=== PATIENT | male | born 1980 | race Caucasian/White ===

== ENCOUNTER 2016-12-04 04:05 | Emergency (ER) | payer SELFPAY ==
[~2016-12-04] VITALS: Ht 175.3 cm; Wt 133.8 kg
[2016-12-04] MEDS ORDERED: IBUPROFEN 600 MG TAB PO ONE (05:30)
[2016-12-04 05:34] VITALS: BP 136/74
== END 2016-12-04 05:52 | disposition home or self-care (01) ==
LOC: M ED 04:59
DX: T81.30XA Disruption of wound, unspecified, initial encounter (principal); X58.XXXA Exposure to other specified factors, initial encounter; Y92.89 Other specified places as the place of occurrence of the external cause; Y93.89 Activity, other specified; Y99.8 Other external cause status

== ENCOUNTER 2017-01-08 22:42 | Emergency (ER) | payer SELFPAY ==
[~2017-01-08] VITALS: Ht 172.7 cm; Wt 127.0 kg
[2017-01-08] MEDS ORDERED: AMOX500C PO (23:50)
[2017-01-08 23:58] VITALS: BP 149/87
[2017-01-09] MEDS ORDERED: AMOXICILLIN 500 MG CAP PO ONE
[2017-01-09] MEDS ORDERED: NORCO, ANEXSIA 5/325MG TABLET (HYDROcodone/ACETAMINOPHEN) PO ONE
== END 2017-01-09 00:07 | disposition home or self-care (01) ==
LOC: M ED 23:05
DX: K03.9 Disease of hard tissues of teeth, unspecified (principal); G50.1 Atypical facial pain; I10 Essential (primary) hypertension

== ENCOUNTER 2017-02-06 15:52 | Emergency (ER) | payer OTHER, SELFPAY ==
[~2017-02-06] VITALS: Ht 175.3 cm; Wt 127.3 kg
[~2017-02-06 15:52] MED LIST: AMOX500C PO
[2017-02-06] MEDS ORDERED: IBUPROFEN 800 MG TAB PO ONE (17:15)
[2017-02-06] MEDS ORDERED: IBUP80TA PO (17:16)
[2017-02-06 17:32] VITALS: BP 153/100
--- NOTE | 2017-02-06 17:56 | REP ---
LEFT KNEE SERIES, FIVE VIEWS: FINDINGS: There is no evidence of an acute fracture, dislocation or intrinsic bone disease. IMPRESSION: No fracture or dislocation. Signed by Royer Wynn MD 02/06/2017 08:22 P
== END 2017-02-06 17:48 | disposition home or self-care (01) ==
LOC: M ED 17:26
DX: S80.02XA Contusion of left knee, initial encounter (principal); W01.0XXA Fall on same level from slipping, tripping and stumbling without subsequent striking against object, initial encounter; Y92.511 Restaurant or cafe as the place of occurrence of the external cause; Y93.01 Activity, walking, marching and hiking; Y99.0 Civilian activity done for income or pay; I10 Essential (primary) hypertension; R51 Headache; M54.9 Dorsalgia, unspecified; F32.9 Major depressive disorder, single episode, unspecified; G47.33 Obstructive sleep apnea (adult) (pediatric); Z79.2 Long term (current) use of antibiotics

== ENCOUNTER 2017-03-07 09:15 | Outpatient (RCR) | payer OTHER ==
[~2017-03-07 09:15] MED LIST changes: +IBUP80TA PO
== END 2017-03-20 ==
LOC: M PT 09:15
PROVIDERS: ATTEND Orthopaedic Surgery
DX: Z51.89 Encounter for other specified aftercare (principal); S80.02XA Contusion of left knee, initial encounter; X58.XXXA Exposure to other specified factors, initial encounter; Y92.89 Other specified places as the place of occurrence of the external cause; Y93.89 Activity, other specified; Y99.8 Other external cause status
CPT/HCPCS: 97110; 97161; G0283

== ENCOUNTER 2017-04-06 07:00 | Outpatient (RCR) | payer OTHER | END 2017-04-20 | disposition home or self-care (01) | LOC: M PT 07:00 | PROVIDERS: ATTEND Orthopaedic Surgery | DX: Z51.89 Encounter for other specified aftercare (principal); S80.02XA Contusion of left knee, initial encounter; X58.XXXA Exposure to other specified factors, initial encounter; Y92.89 Other specified places as the place of occurrence of the external cause; Y93.89 Activity, other specified; Y99.8 Other external cause status ==

== ENCOUNTER 2017-08-26 19:03 | Emergency (ER) | payer SELFPAY, OTHER ==
[2017-08-26] MEDS: NORCO, ANEXSIA 5/325MG TABLET (HYDROcodone/ACETAMINOPHEN) PO (20:09)
== END 2017-08-26 20:45 | disposition home or self-care (01) ==
LOC: M ED 19:03
DX: S83.402A Sprain of unspecified collateral ligament of left knee, initial encounter (principal); S93.402A Sprain of unspecified ligament of left ankle, initial encounter; W10.9XXA Fall (on) (from) unspecified stairs and steps, initial encounter; Y92.009 Unspecified place in unspecified non-institutional (private) residence as the place of occurrence of the external cause; Y93.89 Activity, other specified; Y99.8 Other external cause status; I10 Essential (primary) hypertension; F41.9 Anxiety disorder, unspecified
CPT/HCPCS: 73564

== ENCOUNTER 2018-01-15 20:24 | Emergency (ER) | payer SELFPAY ==
[2018-01-16] MEDS: NORCO 5/325MG TABLET (BULK FOR ED) PO (00:45)
[2018-01-16] MEDS: METHOCARBAMOL 750 MG TAB PO (00:45)
[2018-01-16] MEDS: NAPROXEN 250 MG TAB PO (00:45)
== END 2018-01-16 01:01 | disposition home or self-care (01) ==
LOC: M ED 20:24
DX: S39.012A Strain of muscle, fascia and tendon of lower back, initial encounter (principal); X58.XXXA Exposure to other specified factors, initial encounter; Y92.009 Unspecified place in unspecified non-institutional (private) residence as the place of occurrence of the external cause; I10 Essential (primary) hypertension; G47.33 Obstructive sleep apnea (adult) (pediatric); Z87.39 Personal history of other diseases of the musculoskeletal system and connective tissue
CPT/HCPCS: 99282

== ENCOUNTER 2018-03-23 08:34 | Emergency (ER) | payer MEDICAID, SELFPAY ==
[2018-03-23] MEDS: MORPHINE 4 MG/ML 1ML VIAL/SYRINGE (J2270) IV ×2 (10:45)
[2018-03-23 11:36] LABS: BASO % 0.4 % (0.0-1.0); EOS # 0.2 10^3/uL (0.0-0.50); EOS % 2.7 % (0.0-3.0); HEMATOCRIT 39.9 % (42.0-52.0); HEMOGLOBIN 13.9 g/dl (13.5-17.5); IMMATURE GRANULOCYTE % 0.2 % (0-3.0); LYMPH # 1.4 10^3/uL (1.5-4.5); LYMPH % 24.5 % (24.0-44.0); MEAN CORPUSCULAR HEMOGLOBIN 29.6 pg (27.0-33.0); MEAN CORPUSCULAR HGB CONC 34.8 g/dl (32.0-36.5); MEAN CORPUSCULAR VOLUME 85.1 fl (80.0-96.0); MONO # 0.5 10^3/uL (0.0-0.8); MONO % 8.6 % (0.0-5.0); NEUTROPHILS # 3.6 10^3/uL (1.8-7.7); NEUTROPHILS % 63.6 % (36.0-66.0); PLATELET COUNT, AUTOMATED 171 10^3/uL (150-450); RED BLOOD COUNT 4.69 10^6/uL (4.30-6.10); RED CELL DISTRIBUTION WIDTH 14.3 % (11.5-14.5); WHITE BLOOD COUNT 5.6 10^3/uL (4.0-10.0)
[2018-03-23] MEDS: ONDANSETRON 4MG/2ML VIAL (J2405) IV ×2 (11:36)
[2018-03-23 11:55] LABS: ANION GAP 7 MEQ/L (8-16); BLOOD UREA NITROGEN 7 MG/DL (7-18); CALCIUM LEVEL 8.1 MG/DL (8.5-10.1); CARBON DIOXIDE LEVEL 29 MEQ/L (21-32); CHLORIDE LEVEL 105 MEQ/L (98-107); CREATININE FOR GFR 0.96 MG/DL (0.70-1.30); GLOMERULAR FILTRATION RATE > 60.0 (>60); GLUCOSE, FASTING 86 MG/DL (70-100); POTASSIUM SERUM 3.7 MEQ/L (3.5-5.1); SODIUM LEVEL 141 MEQ/L (136-145)
[2018-03-23] MEDS ORDERED: ISOVUE-370 76% 100ML VIAL (Q9967) As Ordered ×2 (11:56)
[2018-03-23] MEDS: PERCOCET 5MG/325MG TAB PO ×2 (12:18)
== END 2018-03-23 13:22 | disposition home or self-care (01) ==
LOC: M ED 08:34
DX: S09.90XA Unspecified injury of head, initial encounter (principal); S20.229A Contusion of unspecified back wall of thorax, initial encounter; W01.0XXA Fall on same level from slipping, tripping and stumbling without subsequent striking against object, initial encounter; Y92.098 Other place in other non-institutional residence as the place of occurrence of the external cause
CPT/HCPCS: J2405

== ENCOUNTER → 2018-05-22 | Outpatient (CLI) | payer OTHER, MEDICAID | LOC: M RAD 07:04 | DX: S80.02XD Contusion of left knee, subsequent encounter (principal); W18.30XD Fall on same level, unspecified, subsequent encounter; Y92.009 Unspecified place in unspecified non-institutional (private) residence as the place of occurrence of the external cause | CPT/HCPCS: 73721 ==

== ENCOUNTER → 2018-09-04 | Outpatient (REF) | payer OTHER ==
[~2018-09-04] MED LIST changes: +NAPR-885 PO; +ROBA500T PO; +TYLE500T78 PO; +ULTR50TA8 PO
[2018-09-04 12:18] LABS: BASO % 0.6 % (0.0-1.0); EOS # 0.2 10^3/uL (0.0-0.50); EOS % 2.2 % (0.0-3.0); HEMATOCRIT 44.9 % (42.0-52.0); HEMOGLOBIN 14.9 g/dl (13.5-17.5); LYMPH # 1.5 10^3/uL (1.5-4.5); LYMPH % 20.2 % (24.0-44.0); MEAN CORPUSCULAR HEMOGLOBIN 29.7 pg (27.0-33.0); MEAN CORPUSCULAR HGB CONC 33.2 g/dl (32.0-36.5); MEAN CORPUSCULAR VOLUME 89.6 fl (80.0-96.0); MONO # 0.7 10^3/uL (0.0-0.8); MONO % 9.1 % (0.0-5.0); NEUTROPHILS # 4.8 10^3/uL (1.8-7.7); NEUTROPHILS % 67.2 % (36.0-66.0); PLATELET COUNT, AUTOMATED 205 10^3/uL (150-450); RED BLOOD COUNT 5.01 10^6/uL (4.30-6.10); WHITE BLOOD COUNT 7.2 10^3/uL (4.0-10.0)
[2018-09-04 12:31] LABS: ALBUMIN 3.6 GM/DL (3.2-5.2); ALT/SGPT 35 U/L (12-78); BILIRUBIN,TOTAL 0.9 MG/DL (0.2-1.0); BLOOD UREA NITROGEN 11 MG/DL (7-18); CALCIUM LEVEL 8.3 MG/DL (8.5-10.1); CARBON DIOXIDE LEVEL 30 MEQ/L (21-32); CHLORIDE LEVEL 103 MEQ/L (98-107); CHOLESTEROL LEVEL 108 MG/DL (<200); CHOLESTEROL RISK RATIO 2.634 (<5); CREATININE FOR GFR 0.92 MG/DL (0.70-1.30); GLOMERULAR FILTRATION RATE > 60.0 (>60); GLUCOSE, FASTING 95 MG/DL (70-100); HDL CHOLESTEROL 41 MG/DL (>40); LDL CHOLESTEROL 53 MG/DL (<100); NON-HDL-C 67 MG/DL; POTASSIUM SERUM 4.2 MEQ/L (3.5-5.1); SODIUM LEVEL 139 MEQ/L (136-145); TOTAL PROTEIN 7.3 GM/DL (6.4-8.2); TRIGLYCERIDES LEVEL 71 MG/DL (<150)
[2018-09-04 14:09] LABS: TOTAL 25(OH) VITAMIN D 15.8 NG/ML (30.0-100.0)
[2018-09-04 15:28] LABS: HEMOGLOBIN A1c 4.5 %
== END ==
LOC: M SFHCPLAZ 10:20
PROVIDERS: ATTEND Nurse Practitioner Family
DX: Z13.228 Encounter for screening for other metabolic disorders (principal); Z13.220 Encounter for screening for lipoid disorders; E55.9 Vitamin D deficiency, unspecified

== ENCOUNTER 2018-11-09 16:03 | Emergency (ER) | payer OTHER ==
[~2018-11-09] VITALS: Ht 175.3 cm; Wt 136.4 kg
[2018-11-09] MEDS ORDERED: REGL10TA6 PO (16:53)
[2018-11-09] MEDS ORDERED: METOCLOPRAMIDE 10 MG TAB PO ONE (17:00)
[2018-11-09 17:23] VITALS: BP 119/75
== END 2018-11-09 17:25 | disposition home or self-care (01) ==
LOC: M ED 16:03
DX: A08.4 Viral intestinal infection, unspecified (principal); I51.9 Heart disease, unspecified; I10 Essential (primary) hypertension; G89.29 Other chronic pain

== ENCOUNTER → 2018-12-24 | Outpatient (REF) | payer OTHER ==
[~2018-12-24] MED LIST changes: +REGL10TA6 PO
[2018-12-24 19:37] LABS: BASO # 0.1 10^3/uL (0.0-0.2); BASO % 0.7 % (0.0-1.0); EOS # 0.2 10^3/uL (0.0-0.50); EOS % 1.8 % (0.0-3.0); HEMOGLOBIN 14.5 g/dl (13.5-17.5); LYMPH # 1.8 10^3/uL (1.5-4.5); LYMPH % 19.9 % (24.0-44.0); MEAN CORPUSCULAR HEMOGLOBIN 28.4 pg (27.0-33.0); MEAN CORPUSCULAR HGB CONC 33.7 g/dl (32.0-36.5); MEAN CORPUSCULAR VOLUME 84.3 fl (80.0-96.0); MONO # 0.8 10^3/uL (0.0-0.8); MONO % 8.9 % (0.0-5.0); NEUTROPHILS # 6.3 10^3/uL (1.8-7.7); NEUTROPHILS % 68.3 % (36.0-66.0); PLATELET COUNT, AUTOMATED 225 10^3/uL (150-450); WHITE BLOOD COUNT 9.1 10^3/uL (4.0-10.0)
[2018-12-24 19:51] LABS: ALBUMIN 3.4 GM/DL (3.2-5.2); ALT/SGPT 28 U/L (12-78); BILIRUBIN,TOTAL 0.9 MG/DL (0.2-1.0); BLOOD UREA NITROGEN 19 MG/DL (7-18); CALCIUM LEVEL 8.1 MG/DL (8.5-10.1); CARBON DIOXIDE LEVEL 29 MEQ/L (21-32); CHLORIDE LEVEL 103 MEQ/L (98-107); CHOLESTEROL LEVEL 90 MG/DL (<200); CHOLESTEROL RISK RATIO 2.903 (<5); CREATININE FOR GFR 1.05 MG/DL (0.70-1.30); FREE T4 0.79 NG/DL (0.76-1.46); GLOMERULAR FILTRATION RATE > 60.0 (>60); GLUCOSE, FASTING 86 MG/DL (70-100); HDL CHOLESTEROL 31 MG/DL (>40); LDL CHOLESTEROL 34 MG/DL (<100); NON-HDL-C 59 MG/DL; POTASSIUM SERUM 4.3 MEQ/L (3.5-5.1); SODIUM LEVEL 138 MEQ/L (136-145); TOTAL 25(OH) VITAMIN D 13.2 NG/ML (30.0-100.0); TOTAL PROTEIN 7.5 GM/DL (6.4-8.2); TRIGLYCERIDES LEVEL 127 MG/DL (<150); VITAMIN B12 LEVEL 1628 PG/ML (247-911)
[2018-12-24 19:52] LABS: FOLATE 9.1 NG/ML (>5.4)
[2018-12-24 20:08] LABS: HEMOGLOBIN A1c 4.6 %
== END ==
LOC: M LAB REF 18:46
PROVIDERS: ATTEND Nurse Practitioner Family
DX: I10 Essential (primary) hypertension (principal); Z13.9 Encounter for screening, unspecified

== ENCOUNTER → 2019-01-18 | Outpatient (REF) | payer OTHER ==
[2019-01-18 14:28] LABS: SEMEN APPEARANCE YELLOW (OPAQUE); SEMEN VISCOSITY LIQUID (LIQUID); SEMEN VOLUME 2.5 ML (2.0-5.0)
[2019-01-18 14:29] LABS: SEMEN WBC >1 M/ml (<=1 M/ml)
== END ==
LOC: M SMT 14:13
PROVIDERS: ATTEND Nurse Practitioner Family
DX: N46.9 Male infertility, unspecified (principal)

== ENCOUNTER 2019-03-08 00:04 | Emergency (ER) | payer OTHER ==
[~2019-03-08] VITALS: Ht 175.3 cm; Wt 145.4 kg
[2019-03-08 00:04] VITALS: BP 139/85
== END 2019-03-08 03:30 | disposition left against medical advice (07) ==
LOC: M ED 00:04
DX: Z53.29 Procedure and treatment not carried out because of patient's decision for other reasons (principal)

== ENCOUNTER 2019-04-16 10:42 | Day surgery (SDC) | payer OTHER ==
[~2019-04-16] VITALS: Ht 175.3 cm; Wt 155.1 kg
[2019-04-16] VITALS (7 sets, daily range): BP systolic 136–146; BP diastolic 87–98; O2SAT 96
[~2019-04-16 10:42] MED LIST changes: +IBUP200C25 PO; +LIDOCAINE 1% MDV 20ML VIAL SQ PRN; +LIDOCAINE 2% INJ 100 MG/5 ML SDV (FOR ANES.) As Ordered ONE; +LR 1,000 ML IV ONE; +MIDAZOLAM INJ 2 MG/2 ML VIAL (J2250) As Ordered ONE; +PROPOFOL 200 MG/20 ML VIAL As Ordered ONE; +ceFAZolin SOD 1 GM in D5W MINI-BAG PLUS 50 ML IV ONE; +fentaNYL 100 MCG/2 ML INJECTION (J3010) As Ordered ONE
[2019-04-16] MEDS ORDERED: ROPIvacaine 0.5% 30 ML INJECTION (J2795 PER 1MG) As Ordered ONE (13:21)
[2019-04-16] MEDS ORDERED: dexameTHASONE 4 MG/ML 1ML VIAL (J1100) As Ordered ONE ×2 (13:21→14:07)
[2019-04-16] MEDS ORDERED: ROCURONIUM BROMIDE 50 MG/5 ML VIAL As Ordered ONE (13:25)
--- NOTE | 2019-04-16 13:28 | IPN ---
DATE: 04/16/2019 Patient seen and examined. He wished to go ahead with a left knee arthroscopy. He has been failing conservative management. He understands the nature this, the risks of bleeding, infection, damage to nerves, vessels, persistent pain, stiffness. His body mass index (BMI) is about 50. His prognosis I think is quite limited as a result of his weight, his likely underlying arthritis and his duration of symptoms. He is well aware of all this.
[2019-04-16] MEDS ORDERED: ONDANSETRON 4MG/2ML VIAL (J2405) As Ordered ONE (14:07)
[2019-04-16] MEDS ORDERED: METOCLOPRAMIDE INJ 10MG/2ML VIAL (J2765) As Ordered ONE (14:07)
[2019-04-16] MEDS ORDERED: KETOROLAC 60 MG/2 ML VIAL (J1885) As Ordered ONE (14:07)
[2019-04-16] MEDS ORDERED: SUGAMMADEX SODIUM 500 MG/5 ML VIAL (BRIDION) As Ordered ONE (14:07)
[2019-04-16] MEDS ORDERED: ACETAMINOPHEN 1000MG 100ML IV BTL (OFIRMEV) (J0131 PER 10MG) As Ordered ONE (14:11)
[2019-04-16] MEDS ORDERED: ALBUTEROL 6.7GM INHALER **FOR ANES. CART/OMNICELL ONLY As Ordered ONE (15:02)
[2019-04-16] MEDS ORDERED: LR 1,000 ML IV SCH ×2 (15:15)
[2019-04-16] MEDS ORDERED: ONDANSETRON 4MG/2ML VIAL (J2405) IV PRN (15:15)
[2019-04-16] MEDS ORDERED: fentaNYL 100 MCG/2 ML INJECTION (J3010) IV PRN (15:15)
[2019-04-16] MEDS ORDERED: ACETAMINOPH W/CODEINE #3 TAB UD PO PRN (15:15)
[2019-04-16] MEDS: PERCOCET 5MG/325MG TAB PO PRN ×2 (15:50→16:20)
[2019-04-16] MEDS: ACETAMINOPH W/CODEINE #3 TAB UD PO PRN (20:14)
--- NOTE | 2019-04-16 20:27 | CR.PDOC ---
General Date of Consultation: Apr 16, 2019 Referring Provider: Vinnie Frazier Attending Physician: LYNN BRUSH DO Consultation REASON FOR CONSULTATION/CHIEF COMPLAINT: Hypoxia HISTORY OF PRESENT ILLNESS: Patient is 38 years old male with past medical history of obstructive sleep apnea, morbid obesity, torn meniscus presented to the hospital for left knee arthroplasty. Surgery was done on 04/16/19, after anesthesia patient developed hypoxia with oxygen saturation of 89%. Of note patient was diagnosed with obstructive sleep apnea, he did not use CPAP due to lack of insurance. When I saw patient he was resting comfortably, his oxygen saturation was 98% on that 2 L. Patient denies fever, chills, nausea, vomiting, palpitations, diarrhea or dysuria ALLERGIES: Please see below. HOME MEDICATIONS: Please see below. PAST MEDICAL HISTORY: 1. Morbid obesity 2. Obstructive sleep apnea PAST SURGICAL HISTORY: 1. Left knee arthroplasty FAMILY HISTORY: Mother: Depression SOCIAL HISTORY: Marital status and/or living arrangements: Children: 2 kids Employment: Currently unemployed Tobacco use: None ETOH: None Illicit drug use: None IV drug use: None REVIEW OF SYSTEMS: 10 point review of system is negative except what is listed in HPI ALLERGIC/IMMUNOLOGIC: None PHYSICAL EXAMINATION: VITAL SIGNS: Please see below. GENERAL APPEARANCE: Morbidly obese male HEENT: VENICE PERKINS RESPIRATORY: CTA CARDIOVASCULAR: S1-S2 ABDOMEN: Nontender nondistended EXTREMITIES: No cyanosis, no swelling, left knee covered by dressing NEUROLOGICAL: Nonfocal LABORATORY DATA: Please see below. ASSESSMENT/PLAN: Patient is 38 years old male with past medical history of obstructive sleep apnea, morbid obesity, torn meniscus presented to the hospital for left knee arthroplasty. Surgery was done on 04/16/19, after anesthesia patient developed hypoxia with oxygen saturation of 89%. Of note patient was diagnosed with obstructive sleep apnea, he did not use CPAP due to lack of insurance. 1. Hypoxia Patient has history of obstructive sleep apnea. Most likely he has obesity hypoventilation syndrome which can because of hypoxia after anesthesia. Incentive spirometry, CPAP daily at bedtime 2. Morbid obesity Suit Maker consult Vital Signs/I&O Vital Signs Date Time Temp Pulse Resp B/P (MAP) Pulse Ox O2 Delivery O2 Flow Rate FiO2 04/16/19 20:14 91 23 97 04/16/19 19:00 98.7 142/94 (110) 04/16/19 17:05 2.0 Allergies Coded Allergies: No Known Allergies (Unverified , 12/04/16) Home Medications Scheduled PRN Ibuprofen (Ibuprofen) 200 Mg Capsule, 200 MG PO PRN PRN for PAIN, (Reported) Tramadol HCl (Ultram) 50 Mg Tab, 50 MG PO Q6H PRN for PAIN, #20 (Reported) MDD 4 LYNN BRUSH DO Apr 16, 2019 20:27
[2019-04-17] MEDS: ACETAMINOPH W/CODEINE #3 TAB UD PO PRN (01:37)
[2019-04-17 02:00] VITALS: BP 134/87
[2019-04-17 02:51] VITALS: O2SAT 61
[2019-04-17 02:52] VITALS: O2SAT 96
[2019-04-17 06:00] VITALS: BP 142/89
--- NOTE | 2019-04-17 14:03 | RO ---
DATE OF PROCEDURE: 04/16/2019 PREPROCEDURE DIAGNOSES: Left knee osteoarthritis, lateral meniscus tear, morbid obesity. POSTPROCEDURE DIAGNOSES: Left knee osteoarthritis, lateral meniscus tear, morbid obesity. PROCEDURE: Left knee operative arthroscopy, partial lateral meniscectomy and joint debridement, excision medial parapatellar plica. SURGEON: Vinnie Frazier MD ONION TOPPER: ANESTHESIA: General. ESTIMATED BLOOD LOSS: Minimal. COMPLICATIONS: None. INDICATIONS: This is a 38-year-old gentleman who has had some persistent knee pain ongoing for a long duration. He was refractory to conservative management. His BMI is approximately 50. He wished to go ahead with surgical treatment, understood the nature of the procedure, the risks of bleeding, infection, damage to nerves, vessels, persistent pain, blood clots, medical problems among others. He understood his prognosis is significantly more limited due to his weight, duration of symptoms, underlying arthritis. PROCEDURE The patient was taken to the operating room and placed in supine position. After general anesthesia was induced, left lower extremity was prepped and draped in usual sterile fashion. No tourniquet could be used due to the size of his leg. I then used spinal needles try to localize the inferolateral portal and then made an incision thereafter we did a time-out. I then also made a medial incision. I was able to introduce the scope. There was some bleeding evident due to the absence of the tourniquet but was able to get this eventually cleared and see the patellofemoral joint, which was reasonably well-preserved. I proceeded down both gutters. There were some medial osteophytes off the femur. The medial meniscus was identified. No clear evidence of medial meniscus tear. This was probed carefully, again it was pretty difficult to visualize due to the size of his leg, but I was able to probe it and was satisfied that there were no obvious tears. The notch was identified and the anterior cruciate ligament (ACL) was unremarkable. I did excise the infrapatellar plica for visualization. The lateral compartment was identified. He had a complex large lateral meniscus tear. There was an undersurface and the superior surface tear was throughout much of the mid body into the posterior horn. This was resected with a combination of basket punch and a 4.2 shaver back to a stable rim. I then reprobed the meniscus and made sure it was stable and that there were no remaining tears. There was some grade 2 changes in the lateral compartment on the a medial femoral condyle. In addition, there was a small defect that was near full thickness but not quite down to the subchondral bone and there were some loose flaps that were carefully smoothed off. I proceeded to the patellofemoral joint, removed the thickened suprapatellar plica, irrigated, reexamined the entire joint, removed the instrumentation, closed the portals using 4-0 nylon suture, injected 30 mL of Naropin. Sterile dressing was applied. He was taken to recovery room in stable condition. There were no known complications. The plan will be routine postop. This was coded as an unusually difficult procedure due to the patient's BMI of 50, which made this much more difficult to access the knee, much more difficult to visualize the knee, was unable use a tourniquet due to the size of his leg, which would have probably resulted in just being a venous tourniquet and overall added to the complexity of the procedure.
== END 2019-04-17 10:22 | disposition home or self-care (01) ==
LOC: M SDC 10:42 → M MS5PR 17:00 → M SDC 04-17 10:22
PROVIDERS: ATTEND Orthopaedic Surgery
DX: S83.282A Other tear of lateral meniscus, current injury, left knee, initial encounter (principal); G47.33 Obstructive sleep apnea (adult) (pediatric); E66.01 Morbid (severe) obesity due to excess calories; Y92.9 Unspecified place or not applicable; Y93.9 Activity, unspecified
CPT/HCPCS: 29881; 96360; 96361; J0131; J0690; J1100; J1885; J2250; J2405; J2765; J2795; J3010

== ENCOUNTER → 2019-05-20 | Outpatient (RCR) | payer OTHER ==
[~2019-05-20] MED LIST changes: -LIDOCAINE 1% MDV 20ML VIAL SQ PRN; -LIDOCAINE 2% INJ 100 MG/5 ML SDV (FOR ANES.) As Ordered ONE; -LR 1,000 ML IV ONE; -MIDAZOLAM INJ 2 MG/2 ML VIAL (J2250) As Ordered ONE; -PROPOFOL 200 MG/20 ML VIAL As Ordered ONE; -ceFAZolin SOD 1 GM in D5W MINI-BAG PLUS 50 ML IV ONE; -fentaNYL 100 MCG/2 ML INJECTION (J3010) As Ordered ONE
== END ==
LOC: M PT 05-09 07:23
PROVIDERS: ATTEND Orthopaedic Surgery
DX: Z47.89 Encounter for other orthopedic aftercare (principal); Z98.890 Other specified postprocedural states; M25.562 Pain in left knee

== ENCOUNTER → 2019-06-12 | Outpatient (REF) | payer OTHER ==
[2019-06-12 16:02] LABS: C REACTIVE PROTEIN QUANTITATIV 1.44 MG/DL (0.00-0.30); RHEUMATOID FACTOR QUANT < 10.0 IU/ML (<15.0); URIC ACID 5.6 MG/DL (3.5-7.2)
[2019-06-12 16:09] LABS: HEMATOCRIT 43.1 % (42.0-52.0); HEMOGLOBIN 14.3 g/dl (13.5-17.5); MEAN CORPUSCULAR HEMOGLOBIN 28.7 pg (27.0-33.0); MEAN CORPUSCULAR HGB CONC 33.2 g/dl (32.0-36.5); MEAN CORPUSCULAR VOLUME 86.5 fl (80.0-96.0); PLATELET COUNT, AUTOMATED 207 10^3/uL (150-450); RED BLOOD COUNT 4.98 10^6/uL (4.30-6.10); WHITE BLOOD COUNT 6.2 10^3/uL (4.0-10.0)
[2019-06-12 16:38] LABS: ERYTHROCYTE SEDIMENTATION RATE 16 mm/hr (0-15)
[2019-06-22 15:06] LABS: 21 HYDROXYLASE ANTIBODY <1.0 U/mL (.); ANTINUCLEAR ANTIBODIES DIRECT Negative (Negative); Lyme Disease IgG/IgM Antibodie <0.91 ISR (0.00-0.90); Lyme Disease IgM Ab Quantitati <0.80 index (0.00-0.79)
== END ==
LOC: M LABDRAW1 13:31
PROVIDERS: ATTEND Physician Assistant Surgical
DX: S83.282D Other tear of lateral meniscus, current injury, left knee, subsequent encounter (principal)

== ENCOUNTER → 2019-07-26 | Outpatient (CLI) | payer OTHER ==
--- NOTE | 2019-07-30 01:09 | ECWPNPC ---
PATIENT NAME: YASIR SCHAFER : 1980 GENDER: MALE VISIT DATE: 07/26/2019 DISCHARGE DATE: 07/26/19 1443 VISIT LOCKED DATE TIME: PHYSICIAN: AURORA LLOYD RESOURCE: AURORA LLOYD REASON FOR APPOINTMENT 1. KNEE PAIN-PT CAME A LITTLE EARLY TO FILL OUT PACKET- WAS HISTORY OF PRESENT ILLNESS PAIN SCREENING: PATIENT HAS A COMPLAINT OF ACUTE OR CHRONIC PAIN :YES 38-YEAR-OLD MALE IN FOR INITIAL PAIN CONSULT. PATIENT WAS REFERRED TO US FROM ORTHOPEDICS. PATIENT DOES HAVE A HISTORY OF TRAUMA TO HIS LEFT KNEE. 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 HE DID HAVE ARTHROSCOPY DONE ON THE LEFT KNEE AND ADMITS TO INCREASED PAIN SINCE THE PROCEDURE. PATIENT FURTHER ADMITS TO PAIN IN HIS RIGHT KNEE BUT DOES STATE THAT THIS IS LESS THAN THE LEFT. HE RATES HIS PAIN CURRENTLY AT A 9 OUT OF 10 AND DESCRIBES IT SORE AND SHOOTING. HE WAS PRESCRIBED A TRIAL OF TRAMADOL FROM ORTHOPEDICS AND STATES TODAY THAT THIS MED HAS BEEN EFFECTIVE IN HELPING TO MANAGE HIS PAIN SYMPTOMS. WHEN ASKED HE DOES ADMIT TO USING NSAIDS IN THE PAST AND FURTHER STATES THEY WERE NOT HELPFUL IN REDUCING HIS PAIN. 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 SURGICAL HISTORY LEFT KNEE SURGERY - MD GOMEZ 05/2019 FAMILY HISTORY FATHER: ALIVE 50 YRS, DEPRESSION MOTHER: ALIVE 50 YRS, DEPRESSION, DIAGNOSED WITH HYPERTENSION SIBLINGS: UNKNOWN SON(S): ALIVE, ADHD AND HX OF EPILEPSY CONLIC TONIC DAUGHTER(S): ALIVE PATERNAL GRAND FATHER: PATERNAL GRAND MOTHER: MATERNAL GRAND FATHER: , ALZHEMIER MATERNAL GRAND MOTHER: ALIVE, RA MATERNAL AUNT: OTHER MALIGNANT NEOPLASM OF UNSPECIFIED SITE 1 SON(S) . DENIES FAMILY HISTORY OF UROLOGICAL DXMOTHER - RHEUMATOID ARTHRITIS. SOCIAL HISTORY GENERAL: TOBACCO USE ARE YOU A:NONSMOKER OTHERS AT HOME: SPOUSE, CHILDREN. EDUCATION LEVEL OF EDUCATION:NOT FINISHED COLLEGE DIET: REGULAR. LANGUAGE LANGUAGES SPOKEN:GHANAIAN DOMESTIC VIOLENCE DO YOU FEEL SAFE IN YOUR ENVIRONMENT?YES RECREATIONAL DRUG USE DRUG USE?NO EXERCISE: NO REGULAR EXERCISE. 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 NEEDED?NO PAIN CLINIC PFS, CLERGY, PUBLIC HEALTH REFERRALS HAS THE PATIENT BEEN EDUCATED REGARDING HIS/HER PLAN OF CARE?YES HAS THE PATIENT BEEN EDUCATED REGARDING PAIN, THE RISK FOR PAIN, THE IMPORTANCE OF EFFECTIVE PAIN MANAGEMENT, AND THE PAIN ASSESSMENT PROCESS?YES LATEX QUESTIONNAIRE LATEX ALLERGY : HAVE YOU EVER DEVELOPED ANY TYPE OF REACTION AFTER HANDLING LATEX PRODUCTS SUCH RUBBER GLOVES, CONDOMS, DIAPHRAGMS, BALLOONS, SOCKS, OR UNDERWEAR?NO LATEX ALLERGY : HAVE YOU EVER DEVELOPED ANY TYPE OF REACTION DURING OR AFTER DENTAL APPOINTMENT, VAGINAL/RECTAL EXAMINATION, SURGICAL PROCEDURE, OR ANY OTHER EXPOSURE?NO LATEX RISK : HAVE YOU EVER HAD ANY DIFFICULTY BREATHING OR HIVES AFTER EATING OR HANDLING ANY FRUITS, OR VEGETABLES; SUCH KIWI, BANANAS, STONE FRUITS, OR CHESTNUTSNO LATEX RISK : DO YOU HAVE A PREVIOUS PERSONAL HISTORY OF MORE THAN NINE SURGERIES, SPINA BIFIDA, OR REPEATED CATHERIZATIONS? NO LATEX RISK : ARE YOU FREQUENTLY EXPOSED TO LATEX PRODUCTS IN YOUR OCCUPATION?NO DATE ASKED : 07/26/2019 CAFFEINE CAFFEINE USE?YES SODA = 2 LITERS PER DAY ADVANCE DIRECTIVE ADVANCE DIRECTIVE DISCUSSED WITH PATIENT:YES PT STATES THAT HE DOES NOT HAVE HCP AND DECLINES ASSISTANCE OR PAPERWORK AT THIS TIME. DS SPIRITISM [id number] CAODAISM NO SCIENTOLOGIST BELIEFS THAT WOULD IMPACT HEALTH CARE. MARITAL STATUS: . ALCOHOL SCREENING DID YOU HAVE A DRINK CONTAINING ALCOHOL IN THE PAST YEAR?NO POINTS0 INTERPRETATIONNEGATIVE SEXUAL HX HAD SEX IN THE LAST 12 MONTHS (VAGINAL, ORAL, OR ANAL)?YES WITHWOMEN ONLY PREVENTION STRATEGIES DISCUSSED:CONDOMS USE PROTECTION?NO HAVE YOU EVER HAD AN STD?NO 07/25/19 PRE ADMISSION NPC COMPLETE DS07/26/19 REVIEWED WITH PATIENT 1354 BV. HOSPITALIZATION/MAJOR DIAGNOSTIC PROCEDURE KNEE SURGERY HOSPITALIZATION 05/2019 REVIEW OF SYSTEMS REVIEWED BY: PROVIDER: RICARDO VALDOVINOS . CONSTITUTIONAL: ANY CHANGE IN YOUR MEDICAL CONDITION? NO . CHILLS NO . FEVER NO . INFECTION: DO YOU HAVE NEW INFECTIONS? NO . DO YOU HAVE HISTORY OF MRSA? NO . MUSCULOSKELETAL: ANY NEW PATTERNS OF PAIN OR NUMBNESS? NO . SYTEMIC LUPUS NO . GASTROENTEROLOGY: ANY NEW CHANGE IN BOWEL CONTROL? NO . BARRETTS ESOPHAGUS NO . CIRRHOSIS NO . HEPATITIS NO . LIVER FAILURE NO . ACID REFLUX NO . UNEXPLAINED WEIGHT LOSS NO . GENITOURINARY: ANY NEW CHANGE IN BLADDER CONTROL? NO . IS THERE A CHANCE YOU COULD BE ? NO . HEMATOLOGY/LYMPH: DO YOU TAKE ANY BLOOD THINNERS? (FOR EXAMPLE- COUMADIN, PLAVIX, AGGRENOX, PLATEL, PRADAXA, OR XARELTO) NO . WHEN WAS YOUR LAST DOSE? DATE: TIME: . LOW PLATELET COUNT NO . SICKLE CELL DISEASE NO . VON WILLIEBRANDS NO . FACTOR V LEIDEN NO . THALLASEMIA NO . ANEMIA NO . EASY BRUISING NO . NEUROLOGY: HAVE YOU FALLEN IN THE PAST 12 MONTHS? YES, HAS HAD A FEW FALLS IN THE PAST YEAR, DUE TO KNEE GIVING OUT, WAS NOT SEEN IN ED FOR EITHER FALL. . ANY NEW EXTREMITY NUMBNESS OR WEAKNESS? NO . HEAD INJURY NO . DEMENTIA NO . CEREBRAL PALSY NO . MULTIPLE SCLEROSIS NO . DIZZINESS NO . HEADACHE YES, DAILY HEADACHE . STROKES NO . VERTIGO NO . CARDIOLOGY: DO YOU HAVE A PACEMAKER OR DEFIBRILLATOR? NO . ANGINA NO . HEART ATTACK NO . HEART SURGERY NO . CONGESTIVE HEART FAILURE/FLUID OVERLOAD NO . CHEST PAIN NO . HIGH BLOOD PRESSURE NO . IRREGULAR HEART BEAT NO . RESPIRATORY: HAVE YOU BEEN SICK IN THE PAST WEEK? NO . FEVER NO . FLU LIKE SYMPTOMS? NO . CPAP NO . BYPAP NO . ASTHMA NO . EMPHYSEMA NO . CHRONIC LUNG DISEASES NO . SHORTNESS OF BREATH ON EXERTION NO . COUGH NO . SNORING NO . INTEGUMENTARY: DO YOU HAVE ANY RASHES OR OPEN SORES? NO . ALLERGIC/IMMUNO: ARE YOU ALLERGIC TO IV DYE? NO . ANY NEW ALLERGIES? NO . PSYCHIATRIC: DO YOU HAVE THOUGHTS OF HURTING YOURSELF OR SOMEONE ELSE? NO . ARE YOU ABUSED, NEGLECTED, OR IN AN UNSAFE ENVIRONMENT? NO . ENDOCRINOLOGY: ARE YOU DIABETIC? NO . THYROID DISORDER NO . OTHER: DO YOU NEED ANY PRESCRIPTIONS? NO . IF YES, PLEASE LIST: ____ . ANY NEW PROBLEMS WITH YOUR MEDICATIONS? NO . WHEN DID YOU LAST EAT? ____ . WHEN DID YOU LAST DRINK? ____ . WHAT DID YOU LAST DRINK? ____ . NAME OF PERSON DRIVING YOU HOME? ____ . DO YOU HAVE ANY OTHER QUESTIONS OR CONCERNS NO . VITAL SIGNS WT 354.8 LBS, HT 70.5 IN, BMI 50.18 INDEX, BP 146/89 MM HG, HR 102 /MIN, RR 18 /MIN, TEMP 98.8 F, OXYGEN SAT % 96%, NA INITIALS AW 1336, REVIEWED BY: BV. EXAMINATION GENERAL EXAMINATION: GENERALNO ACUTE DISTRESS, WELL NOURISHED AND HYDRATED. PSYCHAPPROPRIATE MOOD AND AFFECT . LUNGS:CLEAR TO AUSCULTATION BILATERALLY, NO WHEEZES, RHONCHI, RALES. HEART:NO MURMURS, REGULAR RATE AND RHYTHM. JOINTS:BILATERAL KNEES ARE NOTED TO BE POINT TENDER ALONG THE JOINT LINE, SKIN SHOWS NO ERYTHEMA, ECCHYMOSIS, INCREASED WARMTH, AND/OR SKIN ERUPTIONS NOTED. PATIENT DOES ENDORSE PAIN WITH FLEXION AND EXTENSION OF THE KNEES BILATERALLY.. ASSESSMENTS PAIN IN RIGHT KNEE - M25.561 (PRIMARY) PAIN IN LEFT KNEE - M25.562 OTHER CHRONIC PAIN - G89.29 TREATMENT PAIN IN RIGHT KNEE CONTINUE ULTRAM TABLET, 50 MG, 1 TABLET NEEDED, ORALLY, BID, 30 DAYS, 50 CLINICAL NOTES: 38-YEAR-OLD MALE IN FOR INITIAL PAIN CONSULT. GIVEN PRESENTING SYMPTOMS AND RESULTS OF PHYSICAL EXAMINATION RECOMMENDED TRAMADOL 50 MG TWICE A DAY NEEDED FOR PAIN. PATIENT WILL BE GIVEN 50 TABLETS TO LAST ONE MONTH. PATIENT WILL SIGN NARCOTIC AGREEMENT TODAY, HAVE U TOX PERFORMED, AND A P2P WILL BE SENT. PATIENT HAS EXPRESSED UNDERSTANDING OF AND WAS IN AGREEMENT WITH TREATMENT PLAN. GIVEN TIME TO ASK QUESTIONS AND EXPRESS CONCERNS., ISTOP REGISTRY REVIEWED AND DEMONSTRATES COMPLLIANCE. (REF #[id number] ) BRINGS IN MEDICATIONS WHICH IS APPROPRIATE FOR WHAT WAS DISPENSED. RECENT URINE TOXICOLOGY REVIEWED. NO UNAUTHORIZED MEDICATIONS. NO ILLICIT SUBSTANCES AND PRESCRIBED MEDICATIONS WERE PRESENT. PREVENTIVE MEDICINE PAIN CLINIC TEACHING: MEDICATIONS PT DECLINES INFORMATION ON TRAMADOL. STATES HE IS FAMILIAR WITH THE MEDICATION. PEREZ SORENSEN 07/26/2019 2:49:40 PM > . PROCEDURE CODES FA211 ESTABILISHED PATIENT [facility] CHARGE DISPOSITION & COMMUNICATION FOLLOW UP 4 WEEKS (REASON: BILATERAL KNEE PAIN, NEW MEDICATION) ELECTRONICALLY SIGNED BY JC ENGLAND ON 07/29/2019 AT 08:41 AM EST DISCLAIMER : THIS IS A VISIT SUMMARY EXTRACTED FROM THE [employer] CHART. IT IS NOT A COPY OF THE [employer] PROGRESS NOTE. MERA
== END ==
LOC: M PAIN 13:30
PROVIDERS: ATTEND Family Medicine
DX: M25.561 Pain in right knee (principal); M25.562 Pain in left knee; G89.29 Other chronic pain; E55.9 Vitamin D deficiency, unspecified; E66.01 Morbid (severe) obesity due to excess calories; Z68.43 Body mass index [BMI] 50.0-59.9, adult; Z79.899 Other long term (current) drug therapy

== ENCOUNTER → 2019-08-27 | Outpatient (CLI) | payer OTHER ==
--- NOTE | 2019-08-29 01:34 | ECWPNPC ---
PATIENT NAME: YASIR SCHAFER : 1980 GENDER: MALE VISIT DATE: 08/27/2019 DISCHARGE DATE: 08/27/19 1226 VISIT LOCKED DATE TIME: PHYSICIAN: AURORA LLOYD RESOURCE: AURORA LLOYD REASON FOR APPOINTMENT 1. BILATERAL KNEE PAIN/MEDS HISTORY OF PRESENT ILLNESS HISTORY OF PRESENT ILLNESS: PAIN THE PATIENT DESCRIBES THE PAIN... 38 OLD MALE IN FOR CHRONIC PAIN FOLLOW-UP. HE RATES PAIN CURRENTLY AT AN 8 OUT OF 10 AND DESCRIBES IT SHOOTING. HE CONTINUES WITH HIS TRAMADOL AND ADMITS THAT THE MEDICATION IS WORKING WELL AND DENIES MED SIDE EFFECTS AT THIS TIME. 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 SURGICAL HISTORY LEFT KNEE SURGERY - MD GOMEZ 05/2019 FAMILY HISTORY FATHER: ALIVE 50 YRS, DEPRESSION MOTHER: ALIVE 50 YRS, DEPRESSION, DIAGNOSED WITH HYPERTENSION SIBLINGS: UNKNOWN SON(S): ALIVE, ADHD AND HX OF EPILEPSY CONLIC TONIC DAUGHTER(S): ALIVE PATERNAL GRAND FATHER: PATERNAL GRAND MOTHER: MATERNAL GRAND FATHER: , ALZHEMIER MATERNAL GRAND MOTHER: ALIVE, RA MATERNAL AUNT: OTHER MALIGNANT NEOPLASM OF UNSPECIFIED SITE 1 SON(S) . DENIES FAMILY HISTORY OF UROLOGICAL DXMOTHER - RHEUMATOID ARTHRITIS. SOCIAL HISTORY GENERAL: TOBACCO USE ARE YOU A:NONSMOKER OTHERS AT HOME: SPOUSE, CHILDREN. EDUCATION LEVEL OF EDUCATION:NOT FINISHED COLLEGE DIET: REGULAR. LANGUAGE LANGUAGES SPOKEN:GREEK DOMESTIC VIOLENCE DO YOU FEEL SAFE IN YOUR ENVIRONMENT?YES RECREATIONAL DRUG USE DRUG USE?NO EXERCISE: NO REGULAR EXERCISE. 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 NEEDED?NO PAIN CLINIC PFS, CLERGY, PUBLIC HEALTH REFERRALS HAS THE PATIENT BEEN EDUCATED REGARDING HIS/HER PLAN OF CARE?YES HAS THE PATIENT BEEN EDUCATED REGARDING PAIN, THE RISK FOR PAIN, THE IMPORTANCE OF EFFECTIVE PAIN MANAGEMENT, AND THE PAIN ASSESSMENT PROCESS?YES LATEX QUESTIONNAIRE LATEX ALLERGY : HAVE YOU EVER DEVELOPED ANY TYPE OF REACTION AFTER HANDLING LATEX PRODUCTS SUCH RUBBER GLOVES, CONDOMS, DIAPHRAGMS, BALLOONS, SOCKS, OR UNDERWEAR?NO LATEX ALLERGY : HAVE YOU EVER DEVELOPED ANY TYPE OF REACTION DURING OR AFTER DENTAL APPOINTMENT, VAGINAL/RECTAL EXAMINATION, SURGICAL PROCEDURE, OR ANY OTHER EXPOSURE?NO DATE ASKED : 07/26/2019 LATEX RISK : HAVE YOU EVER HAD ANY DIFFICULTY BREATHING OR HIVES AFTER EATING OR HANDLING ANY FRUITS, OR VEGETABLES; SUCH KIWI, BANANAS, STONE FRUITS, OR CHESTNUTSNO LATEX RISK : DO YOU HAVE A PREVIOUS PERSONAL HISTORY OF MORE THAN NINE SURGERIES, SPINA BIFIDA, OR REPEATED CATHERIZATIONS? NO LATEX RISK : ARE YOU FREQUENTLY EXPOSED TO LATEX PRODUCTS IN YOUR OCCUPATION?NO CAFFEINE CAFFEINE USE?YES SODA = 2 LITERS PER DAY ADVANCE DIRECTIVE ADVANCE DIRECTIVE DISCUSSED WITH PATIENT:YES PT STATES THAT HE DOES NOT HAVE HCP AND DECLINES ASSISTANCE OR PAPERWORK AT THIS TIME. JAINISM [id number] SIKHISM NO CONFUCIANIST BELIEFS THAT WOULD IMPACT HEALTH CARE. MARITAL STATUS: . ALCOHOL SCREENING DID YOU HAVE A DRINK CONTAINING ALCOHOL IN THE PAST YEAR?NO POINTS0 INTERPRETATIONNEGATIVE SEXUAL HX HAD SEX IN THE LAST 12 MONTHS (VAGINAL, ORAL, OR ANAL)?YES WITHWOMEN ONLY PREVENTION STRATEGIES DISCUSSED:CONDOMS USE PROTECTION?NO HAVE YOU EVER HAD AN STD?NO 07/25/19 PRE ADMISSION NPC COMPLETE DS07/26/19 REVIEWED WITH PATIENT 1354 BV. HOSPITALIZATION/MAJOR DIAGNOSTIC PROCEDURE KNEE SURGERY HOSPITALIZATION 05/2019 REVIEW OF SYSTEMS REVIEWED BY: PROVIDER: RICARDO VALDOVINOS . CONSTITUTIONAL: ANY CHANGE IN YOUR MEDICAL CONDITION? NO . CHILLS NO . FEVER NO . INFECTION: DO YOU HAVE NEW INFECTIONS? NO . DO YOU HAVE HISTORY OF MRSA? NO . MUSCULOSKELETAL: ANY NEW PATTERNS OF PAIN OR NUMBNESS? NO . GASTROENTEROLOGY: ANY NEW CHANGE IN BOWEL CONTROL? NO . GENITOURINARY: ANY NEW CHANGE IN BLADDER CONTROL? NO . IS THERE A CHANCE YOU COULD BE ? NO . HEMATOLOGY/LYMPH: DO YOU TAKE ANY BLOOD THINNERS? (FOR EXAMPLE- COUMADIN, PLAVIX, AGGRENOX, PLATEL, PRADAXA, OR XARELTO) NO . WHEN WAS YOUR LAST DOSE? DATE: TIME: . NEUROLOGY: HAVE YOU FALLEN IN THE PAST 12 MONTHS? YES, PRIOR TO LAST VISIT . ANY NEW EXTREMITY NUMBNESS OR WEAKNESS? NO . CARDIOLOGY: DO YOU HAVE A PACEMAKER OR DEFIBRILLATOR? NO . RESPIRATORY: HAVE YOU BEEN SICK IN THE PAST WEEK? NO . FEVER NO . FLU LIKE SYMPTOMS? NO . COUGH NO . INTEGUMENTARY: DO YOU HAVE ANY RASHES OR OPEN SORES? NO . ALLERGIC/IMMUNO: ARE YOU ALLERGIC TO IV DYE? NO . ANY NEW ALLERGIES? NO . PSYCHIATRIC: DO YOU HAVE THOUGHTS OF HURTING YOURSELF OR SOMEONE ELSE? NO . ARE YOU ABUSED, NEGLECTED, OR IN AN UNSAFE ENVIRONMENT? NO . ENDOCRINOLOGY: ARE YOU DIABETIC? NO . OTHER: DO YOU NEED ANY PRESCRIPTIONS? NO . IF YES, PLEASE LIST: ____ . ANY NEW PROBLEMS WITH YOUR MEDICATIONS? NO . WHEN DID YOU LAST EAT? ____ . WHEN DID YOU LAST DRINK? ____ . WHAT DID YOU LAST DRINK? ____ . NAME OF PERSON DRIVING YOU HOME? ____ . DO YOU HAVE ANY OTHER QUESTIONS OR CONCERNS NO . VITAL SIGNS WT 350.2 LBS, HT 70.5 IN, BMI 49.53 INDEX, BP 168/85 MM HG, HR 91 /MIN, RR 18 /MIN, TEMP 97.6 F, OXYGEN SAT % 92%, BLOOD GLUCOSE LEVEL 98, NA INITIALS AW 1204, REVIEWED BY: EMFS AT BEDSIDE, Nori LLOYD AWARE. EM. EXAMINATION GENERAL EXAMINATION: GENERALNO ACUTE DISTRESS, WELL NOURISHED AND HYDRATED. PSYCHAPPROPRIATE MOOD AND AFFECT . LUNGS:CLEAR TO AUSCULTATION BILATERALLY, NO WHEEZES, RHONCHI, RALES. HEART:NO MURMURS, REGULAR RATE AND RHYTHM. ASSESSMENTS OTHER CHRONIC PAIN - G89.29 (PRIMARY) TREATMENT OTHER CHRONIC PAIN CLINICAL NOTES: 38-YEAR-OLD MALE IN FOR CHRONIC PAIN FOLLOW-UP. GIVEN PRESENTING SYMPTOMS AND RESULTS OF PHYSICAL EXAMINATION RECOMMENDED CONTINUATION OF CURRENT MEDICATION REGIMEN WITH FOLLOW-UP IN 3 MONTHS. PATIENT ADMITTED TO FEELING SHAKY TODAY IN CLINIC AND A BLOOD SUGAR WAS ORDERED. PATIENT HAS EXPRESSED UNDERSTANDING OF AND WAS IN AGREEMENT WITH TREATMENT PLAN. GIVEN TIME TO ASK QUESTIONS AND EXPRESS CONCERNS., ISTOP REGISTRY REVIEWED AND DEMONSTRATES COMPLLIANCE. (REF # [id number] ) BRINGS IN MEDICATIONS WHICH IS APPROPRIATE FOR WHAT WAS DISPENSED. RECENT URINE TOXICOLOGY REVIEWED. NO UNAUTHORIZED MEDICATIONS. NO ILLICIT SUBSTANCES AND PRESCRIBED MEDICATIONS WERE PRESENT. PROCEDURE CODES FA211 ESTABILISHED PATIENT [facility] CHARGE DISPOSITION & COMMUNICATION FOLLOW UP 3 MONTHS (REASON: KNEE PAIN) ELECTRONICALLY SIGNED BY JC ENGLAND ON 08/28/2019 AT 08:16 AM EST DISCLAIMER : THIS IS A VISIT SUMMARY EXTRACTED FROM THE [email or web address] CHART. IT IS NOT A COPY OF THE [email or web address] PROGRESS NOTE. RADHAD
== END ==
LOC: M PAIN 11:15
PROVIDERS: ATTEND Family Medicine
DX: G89.29 Other chronic pain (principal); M25.561 Pain in right knee; M25.562 Pain in left knee; Z79.891 Long term (current) use of opiate analgesic

== ENCOUNTER 2019-10-02 10:25 | Emergency (ER) | payer OTHER ==
[~2019-10-02] VITALS: Ht 177.8 cm; Wt 157.3 kg
[2019-10-02] MEDS ORDERED: TRAM50TA2 PO (10:35)
[2019-10-02] MEDS ORDERED: IBUP80TA PO (10:35)
[2019-10-02] MEDS ORDERED: SERT50TA29 PO (10:35)
[2019-10-02] MEDS ORDERED: dexameTHASONE 20 MG/5 ML VIAL (J1100) IV ONE (15:15)
[2019-10-02] MEDS ORDERED: NS 1,000 ML IV ONE (15:15)
[2019-10-02] MEDS ORDERED: KETOROLAC 30 MG/ML VIAL (J1885) IV ONE (15:15)
[2019-10-02] MEDS ORDERED: ISOVUE-370 76% 100ML VIAL (Q9967) As Ordered ONE (16:08)
[2019-10-02 16:33] LABS: BASO % 0.3 % (0.0-1.0); EOS # 0.1 10^3/uL (0.0-0.5); EOS % 1.2 % (0.0-3.0); HEMATOCRIT 40.2 % (42.0-52.0); HEMOGLOBIN 13.4 g/dl (13.5-17.5); LYMPH # 1.2 10^3/uL (1.5-5.0); MEAN CORPUSCULAR HEMOGLOBIN 28.9 pg (27.0-33.0); MEAN CORPUSCULAR HGB CONC 33.3 g/dl (32.0-36.5); MEAN CORPUSCULAR VOLUME 86.8 fl (80.0-96.0); MONO # 0.7 10^3/uL (0.0-0.8); MONO % 9.4 % (0.0-5.0); NEUTROPHILS # 5.5 10^3/uL (1.5-8.5); NEUTROPHILS % 72.6 % (36.0-66.0); PLATELET COUNT, AUTOMATED 153 10^3/uL (150-450); RED BLOOD COUNT 4.63 10^6/uL (4.30-6.10); WHITE BLOOD COUNT 7.5 10^3/uL (4.0-10.0)
[2019-10-02 16:37] LABS: INFLUENZA A AMPLIFICATION NEGATIVE (NEGATIVE); INFLUENZA B AMPLIFICATION NEGATIVE (NEGATIVE)
[2019-10-02 17:00] LABS: ERYTHROCYTE SEDIMENTATION RATE 24 mm/hr (0-15)
--- NOTE | 2019-10-02 18:05 | REPVR ---
PROCEDURE INFORMATION: Exam: CT Neck With Contrast Exam date and time: 10/02/2019 5:40 PM Age: 38 years old Clinical indication: Mass, lump, or swelling in neck; Additional info: Left sided neck swelling TECHNIQUE: Imaging protocol: Computed tomography images of the neck with intravenous contrast. Radiation optimization: All CT scans at this facility use at least one of these dose optimization techniques: automated exposure control; mA and/or kV adjustment per patient size (includes targeted exams where dose is matched to clinical indication); or iterative reconstruction. Contrast material: ISOVUE 370; Contrast volume: 75 ml; Contrast route: IV; COMPARISON: CT Spine,cervical w/o contrast 03/23/2018 8:50 AM FINDINGS: Sinuses: 1.8 x 2.6 cm retention cyst right maxillary sinus. Nasopharynx: Unremarkable. Oropharynx: Unremarkable. No significant tonsillar enlargement. Hypopharynx: Unremarkable Larynx: Unremarkable. Normal epiglottis. Retropharyngeal space: Unremarkable. Submandibular/Parotid glands: Normal. Glands are normal in size. Thyroid: Normal. No enlarged or calcified nodules. Lymph nodes: Unremarkable. No lymphadenopathy. Trachea: Visualized trachea is unremarkable. Lungs: Unremarkable as visualized. Bones/joints: Unremarkable. No acute fracture. Soft tissues: Unremarkable. No significant soft tissue swelling. IMPRESSION: 1. 1.8 x 2.6 cm retention cyst right maxillary sinus. 2. No mass in the left neck demonstrated. Electronically signed by: Adrian Green On 10/02/2019 18:05:25 PM
[2019-10-02] MEDS ORDERED: AUGM875T28 PO (18:36)
[2019-10-02 19:12] VITALS: BP 155/94
[2019-10-02] MEDS ORDERED: KETO10TAB PO (19:32)
== END 2019-10-02 19:30 | disposition home or self-care (01) ==
LOC: M ED 10:25
DX: K08.89 Other specified disorders of teeth and supporting structures (principal); R22.0 Localized swelling, mass and lump, head; F33.9 Major depressive disorder, recurrent, unspecified; F41.9 Anxiety disorder, unspecified; Z79.899 Other long term (current) drug therapy
CPT/HCPCS: 70491; 80047; 83605; 85025; 85652; 86140; 87040; 87502; 96361; 96374; 96375; 99284; J1100; J1885; Q9967

== ENCOUNTER → 2019-10-15 | Outpatient (REF) | payer OTHER ==
[~2019-10-15] MED LIST changes: +AUGM875T28 PO; +KETO10TAB PO; +SERT50TA29 PO; +TRAM50TA2 PO
[2019-10-15 19:28] LABS: BASO % 0.4 % (0.0-1.0); EOS # 0.1 10^3/uL (0.0-0.5); EOS % 1.6 % (0.0-3.0); HEMATOCRIT 40.2 % (42.0-52.0); HEMOGLOBIN 13.8 g/dl (13.5-17.5); LYMPH # 1.6 10^3/uL (1.5-5.0); LYMPH % 20.7 % (24.0-44.0); MEAN CORPUSCULAR HEMOGLOBIN 29.2 pg (27.0-33.0); MEAN CORPUSCULAR HGB CONC 34.3 g/dl (32.0-36.5); MEAN CORPUSCULAR VOLUME 85.2 fl (80.0-96.0); MONO # 0.6 10^3/uL (0.0-0.8); MONO % 7.6 % (0.0-5.0); NEUTROPHILS # 5.4 10^3/uL (1.5-8.5); NEUTROPHILS % 69.3 % (36.0-66.0); PLATELET COUNT, AUTOMATED 201 10^3/uL (150-450); RED BLOOD COUNT 4.72 10^6/uL (4.30-6.10); WHITE BLOOD COUNT 7.7 10^3/uL (4.0-10.0)
[2019-10-15 19:44] LABS: ALBUMIN 3.5 GM/DL (3.2-5.2); ALT/SGPT 29 U/L (12-78); BILIRUBIN,TOTAL 1.1 MG/DL (0.2-1.0); BLOOD UREA NITROGEN 12 MG/DL (7-18); CALCIUM LEVEL 8.1 MG/DL (8.5-10.1); CARBON DIOXIDE LEVEL 29 MEQ/L (21-32); CHLORIDE LEVEL 107 MEQ/L (98-107); CHOLESTEROL LEVEL 95 MG/DL (<200); CHOLESTEROL RISK RATIO 3.392 (<5); CREATININE FOR GFR 0.99 MG/DL (0.70-1.30); FREE T4 0.86 NG/DL (0.76-1.46); GLOMERULAR FILTRATION RATE > 60.0 (>60); GLUCOSE, FASTING 89 MG/DL (70-100); HDL CHOLESTEROL 28 MG/DL (>40); LDL CHOLESTEROL 45 MG/DL (<100); NON-HDL-C 67 MG/DL; POTASSIUM SERUM 3.7 MEQ/L (3.5-5.1); SODIUM LEVEL 140 MEQ/L (136-145); TRIGLYCERIDES LEVEL 110 MG/DL (<150)
[2019-10-15 19:45] LABS: TOTAL 25(OH) VITAMIN D 15.7 NG/ML (30.0-100.0)
[2019-10-15 19:55] LABS: HEMOGLOBIN A1c 4.6 %
== END ==
LOC: M LAB REF 19:02
PROVIDERS: ATTEND Nurse Practitioner Family
DX: R40.0 Somnolence (principal); F41.8 Other specified anxiety disorders; E55.9 Vitamin D deficiency, unspecified; R51 Headache; E66.01 Morbid (severe) obesity due to excess calories; R03.0 Elevated blood-pressure reading, without diagnosis of hypertension; Z13.9 Encounter for screening, unspecified

== ENCOUNTER → 2019-11-26 | Outpatient (CLI) | payer OTHER ==
--- NOTE | 2019-11-28 04:55 | ECWPNPC ---
PATIENT NAME: YASIR SCHAFER : 1980 GENDER: MALE VISIT DATE: 11/26/2019 DISCHARGE DATE: 11/26/19 1243 VISIT LOCKED DATE TIME: PHYSICIAN: AURORA LLOYD RESOURCE: AURORA LLOYD REASON FOR APPOINTMENT 1. KNEE PAIN HISTORY OF PRESENT ILLNESS HISTORY OF PRESENT ILLNESS: PAIN THE PATIENT DESCRIBES THE PAINDURING THE LAST MONTH SEVERITY - PAIN SCORE OF8/10 LOCATIONS BOTH KNEE PAIN. MORE OF LEFT THAN RIGHT QUALITYTHROBBING DURATIONCONTINUOUS, CONSTANT, ALL DAY PAIN IS INCREASED BY:ACTIVITIES, PROLONGED STANDING PAIN IS DECREASED BY:SITTING PERMISSION REQUESTED AND RECEIVED FROM PATIENT TO PERFORM TELEHEALTH VISIT. 39-YEAR-OLD MALE IN FOR CHRONIC PAIN FOLLOW-UP. HE RATES HIS PAIN CURRENTLY AT AN 8 OUT OF 10 AND DESCRIBES IT THROBBING. HE WOULD LIKE TO DISCUSS THE POTENTIAL INCREASE IN HIS MEDICATION TO HELP BETTER ALLEVIATE HIS SYMPTOMS. 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 SURGICAL HISTORY LEFT KNEE SURGERY - MD GOMEZ 05/2019 FAMILY HISTORY FATHER: ALIVE 50 YRS, DEPRESSION MOTHER: ALIVE 50 YRS, DEPRESSION, DIAGNOSED WITH HYPERTENSION SIBLINGS: UNKNOWN SON(S): ALIVE, ADHD AND HX OF EPILEPSY CONLIC TONIC DAUGHTER(S): ALIVE PATERNAL GRAND FATHER: PATERNAL GRAND MOTHER: MATERNAL GRAND FATHER: , ALZHEMIER MATERNAL GRAND MOTHER: ALIVE, RA MATERNAL AUNT: OTHER MALIGNANT NEOPLASM OF UNSPECIFIED SITE 1 SON(S) . DENIES FAMILY HISTORY OF UROLOGICAL DXMOTHER - RHEUMATOID ARTHRITIS. SOCIAL HISTORY GENERAL: TOBACCO USE ARE YOU A:NONSMOKER OTHERS AT HOME: SPOUSE, CHILDREN. EDUCATION LEVEL OF EDUCATION:NOT FINISHED COLLEGE DIET: REGULAR. LANGUAGE LANGUAGES SPOKEN:IRISH DOMESTIC VIOLENCE DO YOU FEEL SAFE IN YOUR ENVIRONMENT?YES NEW PATIENT PAIN DIARY PATIENT DESCRIBES PAIN :HAVE IT ALL THE TIME, THROBBING FROM 0-10, WHAT LEVEL IS YOUR PAIN TODAY?8 PRECIPITATING FACTORS ACTIVITY ALLEVIATING FACTORS MEDICATIONS IMPACT ON FUNCTION YES RECREATIONAL DRUG USE DRUG USE?NO EXERCISE: NO REGULAR EXERCISE. LEARNING BARRIERS / SPECIAL NEEDS CHANGE FROM LAST VISIT?NO BARRIERS TO LEARNING?NO HEARING IMPAIRED?YES CHILKAT BILATERAL VISION IMPAIRED?NO COGNITIVELY IMPAIRED?NO PT REQUIRES ADDITIONAL TEACHING, STATES THAT HE IS COGNITIVELY IMPAIRED READINESS TO LEARN?YES LEARNING PREFERENCES?NO LEARNING CAPABILITIES PRESENT?YES EMOTIONAL BARRIERS?NO SPECIAL DEVICES?YES :OTHER CRUTCHES CREDIT SPECIALIST NEEDED?NO PAIN CLINIC PFS, CLERGY, PUBLIC HEALTH REFERRALS HAS THE PATIENT BEEN EDUCATED REGARDING HIS/HER PLAN OF CARE?YES HAS THE PATIENT BEEN EDUCATED REGARDING PAIN, THE RISK FOR PAIN, THE IMPORTANCE OF EFFECTIVE PAIN MANAGEMENT, AND THE PAIN ASSESSMENT PROCESS?YES LATEX QUESTIONNAIRE LATEX ALLERGY : HAVE YOU EVER DEVELOPED ANY TYPE OF REACTION AFTER HANDLING LATEX PRODUCTS SUCH RUBBER GLOVES, CONDOMS, DIAPHRAGMS, BALLOONS, SOCKS, OR UNDERWEAR?NO LATEX ALLERGY : HAVE YOU EVER DEVELOPED ANY TYPE OF REACTION DURING OR AFTER DENTAL APPOINTMENT, VAGINAL/RECTAL EXAMINATION, SURGICAL PROCEDURE, OR ANY OTHER EXPOSURE?NO DATE ASKED : 07/26/2019 LATEX RISK : HAVE YOU EVER HAD ANY DIFFICULTY BREATHING OR HIVES AFTER EATING OR HANDLING ANY FRUITS, OR VEGETABLES; SUCH KIWI, BANANAS, STONE FRUITS, OR CHESTNUTSNO LATEX RISK : DO YOU HAVE A PREVIOUS PERSONAL HISTORY OF MORE THAN NINE SURGERIES, SPINA BIFIDA, OR REPEATED CATHERIZATIONS? NO LATEX RISK : ARE YOU FREQUENTLY EXPOSED TO LATEX PRODUCTS IN YOUR OCCUPATION?NO CAFFEINE CAFFEINE USE?YES SODA = 2 LITERS PER DAY ADVANCE DIRECTIVE ADVANCE DIRECTIVE DISCUSSED WITH PATIENT:YES PT STATES THAT HE DOES NOT HAVE HCP AND DECLINES ASSISTANCE OR PAPERWORK AT THIS TIME. ANABAPTISM [id number] MUSLIM NO ROMAN CATHOLIC BELIEFS THAT WOULD IMPACT HEALTH CARE. MARITAL STATUS: . ALCOHOL SCREENING DID YOU HAVE A DRINK CONTAINING ALCOHOL IN THE PAST YEAR?NO POINTS0 INTERPRETATIONNEGATIVE SEXUAL HX HAD SEX IN THE LAST 12 MONTHS (VAGINAL, ORAL, OR ANAL)?YES WITHWOMEN ONLY PREVENTION STRATEGIES DISCUSSED:CONDOMS USE PROTECTION?NO HAVE YOU EVER HAD AN STD?NO 07/25/19 PRE ADMISSION NPC COMPLETE DS07/26/19 REVIEWED WITH PATIENT 1354 BV. HOSPITALIZATION/MAJOR DIAGNOSTIC PROCEDURE KNEE SURGERY HOSPITALIZATION 05/2019 REVIEW OF SYSTEMS REVIEWED BY: PROVIDER: RICARDO VALDOVINOS . CONSTITUTIONAL: ANY CHANGE IN YOUR MEDICAL CONDITION? NO . CHILLS NO . FEVER NO . INFECTION: DO YOU HAVE NEW INFECTIONS? NO . DO YOU HAVE HISTORY OF MRSA? NO . MUSCULOSKELETAL: ANY NEW PATTERNS OF PAIN OR NUMBNESS? NO . GASTROENTEROLOGY: ANY NEW CHANGE IN BOWEL CONTROL? NO . GENITOURINARY: ANY NEW CHANGE IN BLADDER CONTROL? NO . IS THERE A CHANCE YOU COULD BE ? NO . HEMATOLOGY/LYMPH: DO YOU TAKE ANY BLOOD THINNERS? (FOR EXAMPLE- COUMADIN, PLAVIX, AGGRENOX, PLATEL, PRADAXA, OR XARELTO) NO . WHEN WAS YOUR LAST DOSE? DATE: TIME: . NEUROLOGY: HAVE YOU FALLEN IN THE PAST 12 MONTHS? NO . ANY NEW EXTREMITY NUMBNESS OR WEAKNESS? NO . CARDIOLOGY: DO YOU HAVE A PACEMAKER OR DEFIBRILLATOR? NO . RESPIRATORY: HAVE YOU BEEN SICK IN THE PAST WEEK? NO . FEVER NO . FLU LIKE SYMPTOMS? NO . COUGH NO . INTEGUMENTARY: DO YOU HAVE ANY RASHES OR OPEN SORES? NO . ALLERGIC/IMMUNO: ARE YOU ALLERGIC TO IV DYE? NO . ANY NEW ALLERGIES? NO . PSYCHIATRIC: DO YOU HAVE THOUGHTS OF HURTING YOURSELF OR SOMEONE ELSE? NO . ARE YOU ABUSED, NEGLECTED, OR IN AN UNSAFE ENVIRONMENT? NO . ENDOCRINOLOGY: ARE YOU DIABETIC? NO . OTHER: DO YOU NEED ANY PRESCRIPTIONS? NO . IF YES, PLEASE LIST: ____ . ANY NEW PROBLEMS WITH YOUR MEDICATIONS? NO . WHEN DID YOU LAST EAT? ____ . WHEN DID YOU LAST DRINK? ____ . WHAT DID YOU LAST DRINK? ____ . NAME OF PERSON DRIVING YOU HOME? ____ . DO YOU HAVE ANY OTHER QUESTIONS OR CONCERNS YES, DISCUSS THE POSSIBILITY OF INCREASE IN DOSAGE OF ULTRAM . ASSESSMENTS PAIN IN RIGHT KNEE - M25.561 (PRIMARY) TREATMENT PAIN IN RIGHT KNEE INCREASE ULTRAM TABLET, 50 MG, 1 TABLET NEEDED, ORALLY, BID, 30 DAYS, 60 CLINICAL NOTES: 39-YEAR-OLD MALE IN FOR CHRONIC PAIN FOLLOW-UP. GIVEN PRESENTING SYMPTOMS RECOMMEND INCREASING NUMBER OF TABLETS TO 60 FOR ONE MONTH MDD OF 2 A DAY WITH FOLLOW-UP IN 2 MONTHS TO DETERMINE EFFICACY OF TREATMENT. FURTHER RECOMMENDED POTENTIAL REFERRAL TO ANOTHER ORTHOPEDIC SURGEON FOR SECOND OPINION. PATIENT EXPRESSED UNDERSTANDING OF AND WAS IN AGREEMENT WITH TREATMENT PLAN. GIVEN TIME TO ASK QUESTIONS AND EXPRESS CONCERNS., ISTOP REGISTRY REVIEWED AND DEMONSTRATES COMPLLIANCE. (REF # [id number] ) BRINGS IN MEDICATIONS WHICH IS APPROPRIATE FOR WHAT WAS DISPENSED. RECENT URINE TOXICOLOGY REVIEWED. NO UNAUTHORIZED MEDICATIONS. NO ILLICIT SUBSTANCES AND PRESCRIBED MEDICATIONS WERE PRESENT. VISIT TO BE BILLED BASED ON TIME SPENT WITH PATIENT. TIME SPENT WITH PATIENT 11 MINUTES. DISPOSITION & COMMUNICATION FOLLOW UP 2 MONTHS (REASON: RIGHT KNEE PAIN) ELECTRONICALLY SIGNED BY JC ENGLAND ON 11/27/2019 AT 01:36 PM EDT DISCLAIMER : THIS IS A VISIT SUMMARY EXTRACTED FROM THE [employer] CHART. IT IS NOT A COPY OF THE [employer] PROGRESS NOTE. RADHAD
== END ==
LOC: M PAIN 09:30
PROVIDERS: ATTEND Family Medicine
DX: M25.561 Pain in right knee (principal); Z79.891 Long term (current) use of opiate analgesic

== ENCOUNTER → 2020-01-27 | Outpatient (CLI) | payer OTHER ==
--- NOTE | 2020-01-29 04:28 | ECWPNPC ---
PATIENT NAME: YASIR SCHAFER : 1980 GENDER: MALE VISIT DATE: 01/27/2020 DISCHARGE DATE: 01/27/20 1337 VISIT LOCKED DATE TIME: PHYSICIAN: AURORA LLOYD RESOURCE: AURORA LLOYD REASON FOR APPOINTMENT 1. RIGHT KNEE PAIN HISTORY OF PRESENT ILLNESS GENERAL: 39-YEAR-OLD MALE IN FOR CHRONIC PAIN FOLLOW-UP. HE RATES HIS PAIN CURRENTLY AT AN 8 OUT OF 10 AND DESCRIBES IT ACHING. HE FEELS MEDICATIONS ARE HELPFUL AND DENIES MED SIDE EFFECTS AT THIS TIME. FALL RISK SCREENING: SCREENING :NO FALLS REPORTED IN THE LAST YEAR PAIN SCREENING: PATIENT HAS A COMPLAINT OF ACUTE OR CHRONIC PAIN :YES LOCATION OF PAIN:KNEES LEFT INTENSITY OF PAIN (SCALE OF 1 TO 10):8 WHAT DOES YOUR PAIN FEEL LIKE:ACHING DURATION:CONTINOUS, CONSTANT, ALL DAY PAIN IS INCREASED BY:ACTIVITIES PAIN IS DECREASED BY:USE OF PAIN MEDICATIONS PAIN HAS INTERFERED WITH THE FOLLOWING:BATHING/DRESSING, MOOD, WALKING ABILITY, HOUSEWORK, RELATIONSHIP WITH OTHERS, ENJOYMENT OF LIFE PLAN/GOALS/TREATMENT/INTERVENTION/FOLLOW UP:SEE PLAN NURSING NOTE: -. PAIN CENTER INTAKE QUESTIONS: DO YOU HAVE A HISTORY OF MRSA? :NO DO YOU TAKE A BLOOD THINNERS? :NO DO YOU HAVE ANY BLEEDING DISORDERS? :NO ANY NEW NUMBNESS OR WEAKNESS IN YOUR LEGS OR ARMS? :NO ANY PACEMAKER,DEFIBRILLATOR, OR DORSAL COLUMN STIMULATOR? :NO DO YOU HAVE ANY RASHES OR OPEN SORES? :NO ARE YOU ALLERGIC TO IV DYE? :NO ARE YOU DIABETIC? :NO ANY NEW PROBLEMS WITH YOUR MEDICATIONS? :NO HAVE YOU RECEIVED A VACCINE IN THE PAST 30 DAYS? :NO DO YOU PLAN TO RECEIVE A VACCINE IN THE NEXT 21 DAYS? :NO DO YOU NEED ANY PRESCRIPTION? :NO DO YOU TAKE ANY IMMUNOSUPPRESSIVE MEDICATIONS? 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 SURGICAL HISTORY LEFT KNEE SURGERY - MD GOMEZ 05/2019 FAMILY HISTORY FATHER: ALIVE 50 YRS, DEPRESSION MOTHER: ALIVE 50 YRS, DEPRESSION, DIAGNOSED WITH HYPERTENSION SIBLINGS: UNKNOWN SON(S): ALIVE, ADHD AND HX OF EPILEPSY CONLIC TONIC DAUGHTER(S): ALIVE PATERNAL GRAND FATHER: PATERNAL GRAND MOTHER: MATERNAL GRAND FATHER: , ALZHEMIER MATERNAL GRAND MOTHER: ALIVE, RA MATERNAL AUNT: OTHER MALIGNANT NEOPLASM OF UNSPECIFIED SITE 1 SON(S) . DENIES FAMILY HISTORY OF UROLOGICAL DXMOTHER - RHEUMATOID ARTHRITIS. SOCIAL HISTORY GENERAL: TOBACCO USE ARE YOU A:NONSMOKER LATEX QUESTIONNAIRE LATEX ALLERGY : HAVE YOU EVER DEVELOPED ANY TYPE OF REACTION AFTER HANDLING LATEX PRODUCTS SUCH RUBBER GLOVES, CONDOMS, DIAPHRAGMS, BALLOONS, SOCKS, OR UNDERWEAR?NO LATEX ALLERGY : HAVE YOU EVER DEVELOPED ANY TYPE OF REACTION DURING OR AFTER DENTAL APPOINTMENT, VAGINAL/RECTAL EXAMINATION, SURGICAL PROCEDURE, OR ANY OTHER EXPOSURE?NO LATEX RISK : HAVE YOU EVER HAD ANY DIFFICULTY BREATHING OR HIVES AFTER EATING OR HANDLING ANY FRUITS, OR VEGETABLES; SUCH KIWI, BANANAS, STONE FRUITS, OR CHESTNUTSNO LATEX RISK : DO YOU HAVE A PREVIOUS PERSONAL HISTORY OF MORE THAN NINE SURGERIES, SPINA BIFIDA, OR REPEATED CATHERIZATIONS? NO LATEX RISK : ARE YOU FREQUENTLY EXPOSED TO LATEX PRODUCTS IN YOUR OCCUPATION?NO DATE ASKED : 01/27/2020 ALCOHOL SCREENING DID YOU HAVE A DRINK CONTAINING ALCOHOL IN THE PAST YEAR?NO POINTS0 INTERPRETATIONNEGATIVE RECREATIONAL DRUG USE DRUG USE?NO CAFFEINE CAFFEINE USE?YES SODA = 2 LITERS PER DAY SEXUAL HX HAD SEX IN THE LAST 12 MONTHS (VAGINAL, ORAL, OR ANAL)?YES WITHWOMEN ONLY PREVENTION STRATEGIES DISCUSSED:CONDOMS USE PROTECTION?NO HAVE YOU EVER HAD AN STD?NO JUDAISM [id number] CHEONDOISM NO MU-ISM BELIEFS THAT WOULD IMPACT HEALTH CARE. LANGUAGE LANGUAGES SPOKEN:CYPRIOT EDUCATION LEVEL OF EDUCATION:NOT FINISHED COLLEGE LEARNING BARRIERS / SPECIAL NEEDS CHANGE FROM LAST VISIT?NO BARRIERS TO LEARNING?NO HEARING IMPAIRED?YES NUIQSUT BILATERAL VISION IMPAIRED?NO COGNITIVELY IMPAIRED?NO PT REQUIRES ADDITIONAL TEACHING, STATES THAT HE IS COGNITIVELY IMPAIRED READINESS TO LEARN?YES LEARNING PREFERENCES?NO LEARNING CAPABILITIES PRESENT?YES EMOTIONAL BARRIERS?NO SPECIAL DEVICES?YES :OTHER CRUTCHES STRINGS TEACHER NEEDED?NO DOMESTIC VIOLENCE DO YOU FEEL SAFE IN YOUR ENVIRONMENT?YES DIET: REGULAR. EXERCISE: NO REGULAR EXERCISE. MARITAL STATUS: . OTHERS AT HOME: SPOUSE, CHILDREN. NEW PATIENT PAIN DIARY PATIENT DESCRIBES PAIN :HAVE IT ALL THE TIME, THROBBING FROM 0-10, WHAT LEVEL IS YOUR PAIN TODAY?8 PRECIPITATING FACTORS ACTIVITY ALLEVIATING FACTORS MEDICATIONS IMPACT ON FUNCTION YES PAIN CLINIC PFS, CLERGY, PUBLIC HEALTH REFERRALS HAS THE PATIENT BEEN EDUCATED REGARDING HIS/HER PLAN OF CARE?YES HAS THE PATIENT BEEN EDUCATED REGARDING PAIN, THE RISK FOR PAIN, THE IMPORTANCE OF EFFECTIVE PAIN MANAGEMENT, AND THE PAIN ASSESSMENT PROCESS?YES ADVANCE DIRECTIVE ADVANCE DIRECTIVE DISCUSSED WITH PATIENT:YES PT STATES THAT HE DOES NOT HAVE HCP AND DECLINES ASSISTANCE OR PAPERWORK AT THIS TIME. HOSPITALIZATION/MAJOR DIAGNOSTIC PROCEDURE KNEE SURGERY HOSPITALIZATION 05/2019 REVIEW OF SYSTEMS CONSTITUTIONAL: ANY RECENT FEVER OR ILLNESS NO . CHILLS NO . GASTROENTEROLOGY: BOWEL INCONTINENCE NO . ANY NEW CHANGE IN BOWEL CONTROL? NO . ABDOMINAL PAIN NO . CONSTIPATION NO . GENITOURINARY: ANY NEW CHANGE IN BLADDER CONTROL? NO . URINARY INCONTINENCE NO . CARDIOLOGY: CHEST PRESSURE NO . CHEST PAIN NO . RESPIRATORY: COUGH NO . SHORTNESS OF BREATH NO . VITAL SIGNS WT 358 LBS, HT 70.5 IN, BMI 50.64 INDEX, BP 182/84 MM HG, REPEAT BP 134/72 MM HG, HR 86 /MIN, RR 20 /MIN, TEMP 98.9 F, OXYGEN SAT % 97%, SAFE IN ENV? 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 EXAMINATION GENERAL EXAMINATION: GENERALNO ACUTE DISTRESS, WELL NOURISHED AND HYDRATED. PSYCHAPPROPRIATE MOOD AND AFFECT . LUNGS:CLEAR TO AUSCULTATION BILATERALLY, NO WHEEZES, RHONCHI, RALES. HEART:NO MURMURS, REGULAR RATE AND RHYTHM. ASSESSMENTS PAIN IN RIGHT KNEE - M25.561 (PRIMARY) TREATMENT PAIN IN RIGHT KNEE INCREASE ULTRAM TABLET, 50 MG, 1 TABLET NEEDED, ORALLY, THREE TIMES DAILY PRN 80 PILLS TO LAST 30 DAYS MDD 3, 30 DAYS, 80 CLINICAL NOTES: 39-YEAR-OLD MALE IN FOR CHRONIC PAIN FOLLOW-UP. GIVEN PRESENTING SYMPTOMS RECOMMENDED INCREASING TRAMADOL TO ONE TABLET 3 TIMES A DAY NEEDED. FURTHER RECOMMENDED REFERRAL TO ORTHOPEDICS FOR SECOND OPINION REGARDING KNEE PAIN. PATIENT HAS EXPRESSED UNDERSTANDING OF AND WAS IN AGREEMENT WITH TREATMENT PLAN. GIVEN TIME TO ASK QUESTIONS AND EXPRESS CONCERNS. , ISTOP REGISTRY REVIEWED AND DEMONSTRATES COMPLLIANCE. (REF # ) BRINGS IN MEDICATIONS WHICH IS APPROPRIATE FOR WHAT WAS DISPENSED. RECENT URINE TOXICOLOGY REVIEWED. NO UNAUTHORIZED MEDICATIONS. NO ILLICIT SUBSTANCES AND PRESCRIBED MEDICATIONS WERE PRESENT. [facility] REASON:SECOND OPINION FOR KNEE PAIN PROCEDURE CODES FA211 ESTABILISHED PATIENT [facility] CHARGE DISPOSITION & COMMUNICATION FOLLOW UP S/P ORTHO APPT (REASON: KNEE PAIN) ELECTRONICALLY SIGNED BY JC ENGLAND ON 01/28/2020 AT 08:30 AM EDT DISCLAIMER : THIS IS A VISIT SUMMARY EXTRACTED FROM THE [employer] CHART. IT IS NOT A COPY OF THE [employer] PROGRESS NOTE. MERA
== END ==
LOC: M PAIN 13:00
PROVIDERS: ATTEND Family Medicine
DX: M25.561 Pain in right knee (principal)

== ENCOUNTER → 2020-01-29 | Outpatient (REF) | payer OTHER, MEDICAID ==
[2020-01-29 13:01] LABS: BASO # 0.1 10^3/uL (0.0-0.2); BASO % 0.8 % (0.0-1.0); EOS # 0.2 10^3/uL (0.0-0.5); EOS % 2.3 % (0.0-3.0); HEMATOCRIT 41.2 % (42.0-52.0); HEMOGLOBIN 13.7 g/dl (13.5-17.5); LYMPH # 1.4 10^3/uL (1.5-5.0); LYMPH % 21.4 % (24.0-44.0); MEAN CORPUSCULAR HGB CONC 33.3 g/dl (32.0-36.5); MEAN CORPUSCULAR VOLUME 87.3 fl (80.0-96.0); MONO # 0.6 10^3/uL (0.0-0.8); MONO % 9.3 % (0.0-5.0); NEUTROPHILS # 4.3 10^3/uL (1.5-8.5); NEUTROPHILS % 65.4 % (36.0-66.0); PLATELET COUNT, AUTOMATED 178 10^3/uL (150-450); RED BLOOD COUNT 4.72 10^6/uL (4.30-6.10); WHITE BLOOD COUNT 6.5 10^3/uL (4.0-10.0)
[2020-01-29 13:25] LABS: ALBUMIN 3.3 GM/DL (3.2-5.2); ALT/SGPT 33 U/L (12-78); BILIRUBIN,TOTAL 0.8 MG/DL (0.2-1.0); BLOOD UREA NITROGEN 10 MG/DL (7-18); CALCIUM LEVEL 8.4 MG/DL (8.5-10.1); CARBON DIOXIDE LEVEL 30 MEQ/L (21-32); CHLORIDE LEVEL 108 MEQ/L (98-107); CHOLESTEROL LEVEL 103 MG/DL (<200); CHOLESTEROL RISK RATIO 2.575 (<5); CREATININE FOR GFR 0.84 MG/DL (0.70-1.30); GLOMERULAR FILTRATION RATE > 60.0 (>60); GLUCOSE, FASTING 91 MG/DL (70-100); HDL CHOLESTEROL 40 MG/DL (>40); LDL CHOLESTEROL 55 MG/DL (<100); NON-HDL-C 63 MG/DL; POTASSIUM SERUM 4.5 MEQ/L (3.5-5.1); SODIUM LEVEL 140 MEQ/L (136-145); TOTAL PROTEIN 6.9 GM/DL (6.4-8.2); TRIGLYCERIDES LEVEL 38 MG/DL (<150)
[2020-01-29 13:31] LABS: TOTAL 25(OH) VITAMIN D 21.1 NG/ML (30.0-100.0)
== END ==
LOC: M LAB REF 12:21
PROVIDERS: ATTEND Nurse Practitioner Family
DX: E55.9 Vitamin D deficiency, unspecified (principal); E66.01 Morbid (severe) obesity due to excess calories; R03.0 Elevated blood-pressure reading, without diagnosis of hypertension; Z13.9 Encounter for screening, unspecified

== ENCOUNTER → 2020-06-17 | Outpatient (CLI) | payer OTHER ==
--- NOTE | 2020-06-23 13:33 | SLEEPCENT ---
DATE: 06/17/2020 ORDERED BY: JC Newton Nocturnal polysomnography was performed for evaluation of sleep physiology in this patient with a history of excessive somnolence, snoring and nonrestorative sleep. Seven hours and 48 minutes of data were reviewed. There were 414 minutes of sleep identified. Sleep latency was prolonged at 33.5 minutes. REM latency was mildly prolonged at 95.5 minutes. Sleep architecture showed poor progression until interventions could be made. Overall sleep efficiency for this study was 89.7%. The electrocardiogram showed a sinus rhythm with an average heart rate of 8- beats per minute. EEG showed normal waveforms for wake and sleep. There were 175 respiratory events identified of 10 seconds in duration or greater for an apnea-hypopnea index of 25.4. The events were associated with profound oxygen desaturations into the 60s, and having confirmed the presence of obstructive sleep apnea syndrome early in testing, the study was stopped shortly before 11:00 p.m. for the application of pressure therapy. The patient was fit with a [employer]Med Quattro full face mask of large size and 4 cm of water pressure were applied to the circuit and the lights were extinguished. Pressure titration ensued over the course of the remaining part of the test to an optimal pressure of 14 cm with which the patient slept through REM without oxygen desaturation or respiratory disruption. IMPRESSIONS: Obstructive sleep apnea syndrome (G47.33). Apnea-hypopnea index 25.4. RECOMMENDATION: Nightly use of pressure therapy 14 cm of water. MTDD
== END ==
LOC: M SLEEP 20:00
PROVIDERS: ATTEND Nurse Practitioner Family
DX: G47.33 Obstructive sleep apnea (adult) (pediatric) (principal)

== ENCOUNTER → 2020-09-24 | Outpatient (CLI) | payer OTHER ==
--- NOTE | 2020-09-28 23:32 | ECWPNPC ---
PATIENT NAME: YASIR SCHAFER : 1980 GENDER: MALE VISIT DATE: 09/24/2020 DISCHARGE DATE: 09/24/20 1404 VISIT LOCKED DATE TIME: PHYSICIAN: KIRSTEN GRAY PHYSICIAN PAGER NO: ACTIVE RESOURCE: KIRSTEN GRAY REASON FOR APPOINTMENT 1. BILAT KNEE PAIN/MED MNGMNT *NEEDS UTOX, & UPDATED NARCOTIC AGREEMENT PER MARISOL*. HISTORY OF PRESENT ILLNESS DEPRESSION SCREENING: PHQ-9 LITTLE INTEREST OR PLEASURE IN DOING THINGSNEARLY EVERY DAY FEELING DOWN, DEPRESSED, OR HOPELESSNOT AT ALL TROUBLE FALLING OR STAYING ASLEEP, OR SLEEPING TOO MUCHSEVERAL DAYS FEELING TIRED OR HAVING LITTLE ENERGYNEARLY EVERY DAY POOR APPETITE OR OVEREATING SEVERAL DAYS FEELING BAD ABOUT YOURSELF-OR THAT YOU ARE A FAILURE OR HAVE LET YOURSELF OR YOUR FAMILY DOWN NEARLY EVERY DAY TROUBLE CONCENTRATING ON THINGS, SUCH READING THE NEWSPAPER OR WATCHING TELEVISION NOT AT ALL MOVING OR SPEAKING SO SLOWLY THAT OTHER PEOPLE COULD HAVE NOTICED. OR THE OPPOSITE- BEING SO FIDGETY OR RESTLESS THAT YOU HAVE BEEN MOVING AROUND A LOT MORE THAN USUALNOT AT ALL THOUGHTS THAT YOU WOULD BE BETTER OFF , OR OF HURTING YOURSELF IN SOME WAY?NOT AT ALL TOTAL SCORE:11 INTERPRETATIONMODERATE DEPRESSION PHQ-2 (2015 EDITION) LITTLE INTEREST OR PLEASURE IN DOING THINGS?SEVERAL DAYS FEELING DOWN, DEPRESSED, OR HOPELESS?SEVERAL DAYS TOTAL SCORE2 GENERAL: -. FALL RISK SCREENING: SCREENING :TWO OR MORE FALLS WITH INJURY IN THE PAST YEAR STATES HE HAS HAD SEVERAL FALLS IN THE LAST YEAR, STATES NO INJURIES WITH FALLS JUST INCREASE IN PAIN EACH TIME PAIN SCREENING: PATIENT HAS A COMPLAINT OF ACUTE OR CHRONIC PAIN :YES LOCATION OF PAIN:LOW BACK, KNEES LOWER BACK PAIN IS 10+, KNEE PAIN IS AVERGE 9/10 INTENSITY OF PAIN (SCALE OF 1 TO 10):9 BIALTERAL KNEE PAIN 9/10, LOWER BACK PAIN IS 10+ WHAT DOES YOUR PAIN FEEL LIKE:ACHING, CONTINOUS, SHARP LOW BACK IS A CONTINUOUS ACHE, BILATERAL KNEE PAIN IS SHARP MOST OF THE TIME DURATION:CONTINOUS PAIN IS INCREASED BY:ACTIVITIES, PROLONGED STANDING PAIN IS DECREASED BY:OTHERS LAYING DOWN HLEOS THE BACK PAIN, MEDS HELP TAKE THE EDGE OFF OF KNEE PAIN NURSING NOTE: -. PAIN CENTER INTAKE QUESTIONS: DO YOU HAVE A HISTORY OF MRSA? :NO DO YOU TAKE A BLOOD THINNERS? :NO DO YOU HAVE ANY BLEEDING DISORDERS? :NO ANY NEW NUMBNESS OR WEAKNESS IN YOUR LEGS OR ARMS? :NO ANY PACEMAKER,DEFIBRILLATOR, OR DORSAL COLUMN STIMULATOR? :NO DO YOU HAVE ANY RASHES OR OPEN SORES? :NO ARE YOU ALLERGIC TO IV DYE? :NO ARE YOU DIABETIC? :NO ANY NEW PROBLEMS WITH YOUR MEDICATIONS? :NO HAVE YOU RECEIVED A VACCINE IN THE PAST 30 DAYS? :NO DO YOU PLAN TO RECEIVE A VACCINE IN THE NEXT 21 DAYS? :NO DO YOU NEED ANY PRESCRIPTION? :YES TRAMADOL DO YOU TAKE ANY IMMUNOSUPPRESSIVE MEDICATIONS? :NO IS THERE A CHANCE YOU COULD BE ? :NO ARE YOU BREAST FEEDING? :NO CURRENT MEDICATIONS TAKING VITAMIN D WEEKLY, NOTES: UNSURE DOSE, TAKING ULTRAM 50 MG TABLET 1 TAB ORALLY TAKE 1 TABLET TWICE A DAY X5 DAYS THEN 1 A DAY X5 DAYS THEN DISCONTINUE MAXIMUM DAILY DOSE 2, TAKING BUPROPION HCL ER (XL) 300 MG TABLET EXTENDED RELEASE 24 HOUR TAKE 1 TABLET BY MOUTH IN THE MORNING ORAL , TAKING SERTRALINE HCL 50 MG TABLET TK 1 T PO D ORAL , TAKING BUPROPION HCL ER (SR) 100 MG TABLET EXTENDED RELEASE 12 HOUR TK 1 T PO IN THE MORNING ORAL , TAKING LAMOTRIGINE 25 MG TABLET TK 1 T PO BID ORAL , NOT-TAKING ADVIL 200 MG TABLET 1 TABLET WITH FOOD OR MILK NEEDED ORALLY THREE TIMES A DAY, NOT-TAKING SILDENAFIL CITRATE 100 MG TABLET 1 TABLET NEEDED ORALLY PRN 1 HOUR BEFORE INTERCOURSE, NOTES: INSURANCE WOULD NOT COVER, MEDICATION LIST REVIEWED AND RECONCILED WITH THE PATIENT PAST MEDICAL HISTORY LEFT KNEE MENISCAL TEAR, HX HEADACHES, VITAMIN D DEFICIENCY, 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 ALLERGIES N.K.D.A. SOCIAL HISTORY GENERAL: TOBACCO USE ARE YOU A:NONSMOKER LATEX QUESTIONNAIRE LATEX ALLERGY : HAVE YOU EVER DEVELOPED ANY TYPE OF REACTION AFTER HANDLING LATEX PRODUCTS SUCH RUBBER GLOVES, CONDOMS, DIAPHRAGMS, BALLOONS, SOCKS, OR UNDERWEAR?NO LATEX ALLERGY : HAVE YOU EVER DEVELOPED ANY TYPE OF REACTION DURING OR AFTER DENTAL APPOINTMENT, VAGINAL/RECTAL EXAMINATION, SURGICAL PROCEDURE, OR ANY OTHER EXPOSURE?NO LATEX RISK : HAVE YOU EVER HAD ANY DIFFICULTY BREATHING OR HIVES AFTER EATING OR HANDLING ANY FRUITS, OR VEGETABLES; SUCH KIWI, BANANAS, STONE FRUITS, OR CHESTNUTSNO LATEX RISK : DO YOU HAVE A PREVIOUS PERSONAL HISTORY OF MORE THAN NINE SURGERIES, SPINA BIFIDA, OR REPEATED CATHERIZATIONS? NO LATEX RISK : ARE YOU FREQUENTLY EXPOSED TO LATEX PRODUCTS IN YOUR OCCUPATION?NO DATE ASKED : 09/24/2020 ALCOHOL SCREENING DID YOU HAVE A DRINK CONTAINING ALCOHOL IN THE PAST YEAR?NO POINTS0 INTERPRETATIONNEGATIVE RECREATIONAL DRUG USE DRUG USE?NO CAFFEINE CAFFEINE USE?YES SODA = 2 LITERS PER DAY SEXUAL HX HAD SEX IN THE LAST 12 MONTHS (VAGINAL, ORAL, OR ANAL)?YES WITHWOMEN ONLY PREVENTION STRATEGIES DISCUSSED:CONDOMS USE PROTECTION?NO HAVE YOU EVER HAD AN STD?NO CHEONDOISM [id number] SCIENTOLOGIST NO ZOROASTRIANISM BELIEFS THAT WOULD IMPACT HEALTH CARE. LANGUAGE LANGUAGES SPOKEN:DIVEHI EDUCATION LEVEL OF EDUCATION:NOT FINISHED COLLEGE LEARNING BARRIERS / SPECIAL NEEDS CHANGE FROM LAST VISIT?NO BARRIERS TO LEARNING?NO HEARING IMPAIRED?YES [place] BILATERAL VISION IMPAIRED?NO COGNITIVELY IMPAIRED?NO PT REQUIRES ADDITIONAL TEACHING, STATES THAT HE IS COGNITIVELY IMPAIRED READINESS TO LEARN?YES LEARNING PREFERENCES?NO LEARNING CAPABILITIES PRESENT?YES EMOTIONAL BARRIERS?NO SPECIAL DEVICES?YES :OTHER CRUTCHES ENAMEL SPRAYER NEEDED?NO DOMESTIC VIOLENCE DO YOU FEEL SAFE IN YOUR ENVIRONMENT?YES DIET: REGULAR. EXERCISE: NO REGULAR EXERCISE. MARITAL STATUS: . OTHERS AT HOME: SPOUSE, CHILDREN. PATIENT DESCRIBES PAIN :HAVE IT ALL THE TIME, THROBBING FROM 0-10, WHAT LEVEL IS YOUR PAIN TODAY?8 PRECIPITATING FACTORS ACTIVITY ALLEVIATING FACTORS MEDICATIONS IMPACT ON FUNCTION YES - HAS THE PATIENT BEEN EDUCATED REGARDING HIS/HER PLAN OF CARE?YES HAS THE PATIENT BEEN EDUCATED REGARDING PAIN, THE RISK FOR PAIN, THE IMPORTANCE OF EFFECTIVE PAIN MANAGEMENT, AND THE PAIN ASSESSMENT PROCESS?YES ADVANCE DIRECTIVE ADVANCE DIRECTIVE DISCUSSED WITH PATIENT:YES PT STATES THAT HE DOES NOT HAVE HCP AND DECLINES ASSISTANCE OR PAPERWORK AT THIS TIME. VITAL SIGNS WT 383.8 LBS, HT 70.5 IN, BMI 54.29 INDEX, BP 165/91 MM HG, HR 94 /MIN, RR 20 /MIN, TEMP 99.1 F, OXYGEN SAT % 98%, SAFE IN ENV? (Y/N) YES, REVIEWED BY: Scott LUIS RN. 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 PATIENT STATES HE HAS AN APPOINTMENT WITH HIS PYSCHIATRIST ON 10/01/20. PATIENT DENIES THOUGHTS OF HURTING HIMSELF OR OTHERS. 09/24/2020 1352 Scott LUIS RN UTOX PERFORMED. PROCEDURE CODES 78779 NO CHARGE VISIT DISPOSITION & COMMUNICATION ELECTRONICALLY SIGNED BY JOSE ALBERTO PHILLIPS ON 09/28/2020 AT 09:00 AM EST DISCLAIMER : THIS IS A VISIT SUMMARY EXTRACTED FROM THE [employer] CHART. IT IS NOT A COPY OF THE [employer] PROGRESS NOTE. MERA
== END ==
LOC: M PAIN 13:30
PROVIDERS: ATTEND Nurse Practitioner Family
DX: M25.561 Pain in right knee (principal); M25.562 Pain in left knee; Z79.899 Other long term (current) drug therapy

== ENCOUNTER → 2020-11-04 | Outpatient (CLI) | payer OTHER ==
--- NOTE | 2020-11-06 06:48 | ECWPNPC ---
PATIENT NAME: YASIR SCHAFER : 1980 GENDER: MALE VISIT DATE: 11/04/2020 DISCHARGE DATE: 11/04/20 1148 VISIT LOCKED DATE TIME: PHYSICIAN: AURORA LLOYD PHYSICIAN PAGER NO: ACTIVE RESOURCE: AURORA LLOYD REASON FOR APPOINTMENT 1. BILAT KNEE PAIN HISTORY OF PRESENT ILLNESS GENERAL: - 40 YEAR OLD MALE IN FOR CHRONIC PAIN FOLLOW UP. HE RATES HIS PAIN AT A 9/10 CURRENTLY AND DESCRIBES IT SHARP AND PULSATING. HE FEELS HIS MEDICATIONS ARE HELPFUL BUT DOES ADMIT TO SOME BREAKTHROUGH PAIN. FALL RISK SCREENING: SCREENING SEVERAL FALLS REPORTED IN THE LAST YEAR WITH INJURY. PATIENT DID NOT SEEK MEDICAL TREATMENT.. PAIN SCREENING: PATIENT HAS A COMPLAINT OF ACUTE OR CHRONIC PAIN :YES LOCATION OF PAIN:LOW BACK, KNEES INTENSITY OF PAIN (SCALE OF 1 TO 10):9 WHAT DOES YOUR PAIN FEEL LIKE:SHARP, OTHER PULSATING DURATION:CONTINOUS, AWAKENS FROM SLEEP PAIN IS INCREASED BY:ACTIVITIES, PROLONGED STANDING PAIN IS DECREASED BY:USE OF PAIN MEDICATIONS, SITTING NURSING NOTE: -. PAIN CENTER INTAKE QUESTIONS: DO YOU HAVE A HISTORY OF MRSA? :NO DO YOU TAKE A BLOOD THINNERS? :NO DO YOU HAVE ANY BLEEDING DISORDERS? :NO ANY NEW NUMBNESS OR WEAKNESS IN YOUR LEGS OR ARMS? :YES INTERMITTENT NUMBNESS BILATERAL LEGS ANY PACEMAKER,DEFIBRILLATOR, OR DORSAL COLUMN STIMULATOR? :NO DO YOU HAVE ANY RASHES OR OPEN SORES? :NO ARE YOU ALLERGIC TO IV DYE? :NO ARE YOU DIABETIC? :NO ANY NEW PROBLEMS WITH YOUR MEDICATIONS? :NO WOULD LIKE TO DISCUSS ALTERNATIVE MEDICATIONS FOR BREAKTHROUGH PAIN HAVE YOU RECEIVED A VACCINE IN THE PAST 30 DAYS? :NO DO YOU PLAN TO RECEIVE A VACCINE IN THE NEXT 21 DAYS? :NO DO YOU NEED ANY PRESCRIPTION? :NO DO YOU TAKE ANY IMMUNOSUPPRESSIVE MEDICATIONS? :NO DO YOU HAVE ANY KIDNEY OR LIVER DISEASE? :NO IS THERE A CHANCE YOU COULD BE ? :NO ARE YOU BREAST FEEDING? :NO CURRENT MEDICATIONS TAKING VITAMIN D WEEKLY, NOTES: UNSURE DOSE TAKING ULTRAM 50 MG TABLET 1 TAB ORALLY TAKE 1 TABLET TWICE A DAY X5 DAYS THEN 1 A DAY X5 DAYS THEN DISCONTINUE MAXIMUM DAILY DOSE 2 TAKING BUPROPION HCL ER (XL) 300 MG TABLET EXTENDED RELEASE 24 HOUR TAKE 1 TABLET BY MOUTH IN THE MORNING ORAL TAKING SERTRALINE HCL 50 MG TABLET TK 1 T PO D ORAL TAKING LAMOTRIGINE 25 MG TABLET TK 1 T PO BID ORAL TAKING ULTRAM 50 MG TABLET 1 TABLET NEEDED ORALLY EVERY 8 HOURS WHEN NECESSARY FOR PAIN MDD 3 TAKING ADDERALL XR 20 MG CAPSULE EXTENDED RELEASE 24 HOUR 1 CAPSULE IN THE MORNING ORALLY ONCE A DAY NOT-TAKING BUPROPION HCL ER (SR) 100 MG TABLET EXTENDED RELEASE 12 HOUR TK 1 T PO IN THE MORNING ORAL NOT-TAKING ADVIL 200 MG TABLET 1 TABLET WITH FOOD OR MILK NEEDED ORALLY THREE TIMES A DAY NOT-TAKING SILDENAFIL CITRATE 100 MG TABLET 1 TABLET NEEDED ORALLY PRN 1 HOUR BEFORE INTERCOURSE, NOTES: INSURANCE WOULD NOT COVER MEDICATION LIST REVIEWED AND RECONCILED WITH THE PATIENT PAST MEDICAL HISTORY LEFT KNEE MENISCAL TEAR HX HEADACHES VITAMIN D DEFICIENCY 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 SOCIAL HISTORY GENERAL: TOBACCO USE ARE YOU A:NONSMOKER LATEX QUESTIONNAIRE LATEX ALLERGY : HAVE YOU EVER DEVELOPED ANY TYPE OF REACTION AFTER HANDLING LATEX PRODUCTS SUCH RUBBER GLOVES, CONDOMS, DIAPHRAGMS, BALLOONS, SOCKS, OR UNDERWEAR?NO LATEX ALLERGY : HAVE YOU EVER DEVELOPED ANY TYPE OF REACTION DURING OR AFTER DENTAL APPOINTMENT, VAGINAL/RECTAL EXAMINATION, SURGICAL PROCEDURE, OR ANY OTHER EXPOSURE?NO LATEX RISK : HAVE YOU EVER HAD ANY DIFFICULTY BREATHING OR HIVES AFTER EATING OR HANDLING ANY FRUITS, OR VEGETABLES; SUCH KIWI, BANANAS, STONE FRUITS, OR CHESTNUTSNO LATEX RISK : DO YOU HAVE A PREVIOUS PERSONAL HISTORY OF MORE THAN NINE SURGERIES, SPINA BIFIDA, OR REPEATED CATHERIZATIONS? NO LATEX RISK : ARE YOU FREQUENTLY EXPOSED TO LATEX PRODUCTS IN YOUR OCCUPATION?NO DATE ASKED : 11/04/2020 ALCOHOL USE: NO. ALCOHOL SCREENING DID YOU HAVE A DRINK CONTAINING ALCOHOL IN THE PAST YEAR?NO POINTS0 INTERPRETATIONNEGATIVE RECREATIONAL DRUG USE DRUG USE?NO CAFFEINE CAFFEINE USE?YES SODA = 2 LITERS PER DAY SEXUAL HX HAD SEX IN THE LAST 12 MONTHS (VAGINAL, ORAL, OR ANAL)?YES WITHWOMEN ONLY PREVENTION STRATEGIES DISCUSSED:CONDOMS USE PROTECTION?NO HAVE YOU EVER HAD AN STD?NO ZOROASTRIANISM [id number] SABIANIST NO WORSHIP BELIEFS THAT WOULD IMPACT HEALTH CARE. LANGUAGE LANGUAGES SPOKEN:FAROESE EDUCATION LEVEL OF EDUCATION:NOT FINISHED COLLEGE LEARNING BARRIERS / SPECIAL NEEDS CHANGE FROM LAST VISIT?NO BARRIERS TO LEARNING?NO HEARING IMPAIRED?YES [place] BILATERAL VISION IMPAIRED?NO COGNITIVELY IMPAIRED?NO PT REQUIRES ADDITIONAL TEACHING, STATES THAT HE IS COGNITIVELY IMPAIRED. PATIENT IS ADHD. READINESS TO LEARN?YES LEARNING PREFERENCES?NO LEARNING CAPABILITIES PRESENT?YES EMOTIONAL BARRIERS?NO SPECIAL DEVICES?YES :WALKER, OTHER MODERN GREEK STUDIES PROFESSOR NEEDED?NO DOMESTIC VIOLENCE DO YOU FEEL SAFE IN YOUR ENVIRONMENT?YES DIET: REGULAR. EXERCISE: NO REGULAR EXERCISE. MARITAL STATUS: . OTHERS AT HOME: SPOUSE, CHILDREN. PATIENT DESCRIBES PAIN :HAVE IT ALL THE TIME, THROBBING FROM 0-10, WHAT LEVEL IS YOUR PAIN TODAY?8 PRECIPITATING FACTORS ACTIVITY ALLEVIATING FACTORS MEDICATIONS IMPACT ON FUNCTION YES - HAS THE PATIENT BEEN EDUCATED REGARDING HIS/HER PLAN OF CARE?YES HAS THE PATIENT BEEN EDUCATED REGARDING PAIN, THE RISK FOR PAIN, THE IMPORTANCE OF EFFECTIVE PAIN MANAGEMENT, AND THE PAIN ASSESSMENT PROCESS?YES ADVANCE DIRECTIVE ADVANCE DIRECTIVE DISCUSSED WITH PATIENT:YES PT STATES THAT HE DOES NOT HAVE HCP AND DECLINES ASSISTANCE OR PAPERWORK AT THIS TIME. REVIEW OF SYSTEMS CONSTITUTIONAL: ANY RECENT FEVER NO . CHILLS NO . WEIGHT CHANGE OF UNKNOWN REASONS NO . GASTROENTEROLOGY: NEW UNEXPLAINABLE CHANGES IN BOWEL CONTROL NO . CONSTIPATION NO . GENITOURINARY: ANY NEW CHANGE IN BLADDER CONTROL? NO . NEUROLOGY: NEW ONSET DIZZINESS OR NEUROLOGICAL CHANGES NOT MENTIONED NO . NEW NUMBNESS OR PAIN PATTERNS NOT MENTIONED AND PERTINENT TO TODAY'S VISIT NO . CARDIOLOGY: NEW CHEST PRESSURE NO . PATIENT DENIES NO . RESPIRATORY: UNEXPLAINABLE COUGH NO . NEW SHORTNESS OF BREATH NO . VITAL SIGNS WT 382.2 LBS, HT 70.5 IN, BMI 54.06 INDEX, BP 171/86 MM HG, HR 85 /MIN, RR 20 /MIN, TEMP 99.3 F, OXYGEN SAT % 97%, SAFE IN ENV? (Y/N) YES, NA INITIALS WA 11:19EAMON BOBBY MA. EXAMINATION GENERAL EXAMINATION: GENERALNO ACUTE DISTRESS, WELL NOURISHED AND HYDRATED. PSYCHAPPROPRIATE MOOD AND AFFECT . LUNGS:CLEAR TO AUSCULTATION BILATERALLY, NO WHEEZES, RHONCHI, RALES. HEART:NO MURMURS, REGULAR RATE AND RHYTHM. ASSESSMENTS PAIN IN RIGHT KNEE - M25.561 (PRIMARY) TREATMENT PAIN IN RIGHT KNEE NOTES: 40 YEAR OLD MALE IN FOR CHRONIC PAIN FOLLOW UP. DISCUSSED MEDICATIONS WITH PATIENT AND IT WAS DECIDED HE WOULD COMPLETE HIS CURRENT TRAMADOL SCRIPT AND THEN WE WOULD TRIAL HYDROCODONE. WILL FOLLOW UP IN 1 MONTH. PATIENT HAS EXPRESSED UNDERSTANDING OF AND WAS IN AGREEMENT WITH TREATMENT PLAN. GIVEN TIME TO ASK QUESTIONS AND EXPRESS CONCERNS. , ISTOP REGISTRY REVIEWED AND DEMONSTRATES COMPLLIANCE. (REF # [id number] ) BRINGS IN MEDICATIONS WHICH IS APPROPRIATE FOR WHAT WAS DISPENSED. RECENT URINE TOXICOLOGY REVIEWED. NO UNAUTHORIZED MEDICATIONS. NO ILLICIT SUBSTANCES AND PRESCRIBED MEDICATIONS WERE PRESENT. PROCEDURE CODES FA211 ESTABILISHED PATIENT [facility]AC[facility] CHARGE DISPOSITION & COMMUNICATION FOLLOW UP 4 WEEKS (REASON: KNEE PAIN ) ELECTRONICALLY SIGNED BY JC ENGLAND ON 11/05/2020 AT 08:57 AM EDT DISCLAIMER : THIS IS A VISIT SUMMARY EXTRACTED FROM THE [employer] CHART. IT IS NOT A COPY OF THE [employer] PROGRESS NOTE. MERA
== END ==
LOC: M PAIN 11:15
PROVIDERS: ATTEND Family Medicine
DX: M25.561 Pain in right knee (principal); M25.562 Pain in left knee; Z79.899 Other long term (current) drug therapy

== ENCOUNTER → 2020-12-15 | Outpatient (CLI) | payer OTHER ==
--- NOTE | 2020-12-17 00:05 | ECWPNPC ---
PATIENT NAME: YASIR SCHAFER : 1980 GENDER: MALE VISIT DATE: 12/15/2020 DISCHARGE DATE: 12/15/20 1519 VISIT LOCKED DATE TIME: PHYSICIAN: AURORA LLOYD PHYSICIAN PAGER NO: ACTIVE RESOURCE: AURORA LLOYD REASON FOR APPOINTMENT 1. BILAT KNEE PAIN HISTORY OF PRESENT ILLNESS GENERAL: -40-YEAR-OLD MALE IN FOR CHRONIC PAIN FOLLOW-UP. HE RATES HIS PAIN CURRENTLY AT AN 8 OUT OF 10 AND DESCRIBES IT CONTINUOUS, AND THROBBING. PATIENT WAS SWITCHED TO HYDROCODONE AND HE ADMITS TODAY THAT THIS HAS BEEN BENEFICIAL. HE DENIES MED SIDE EFFECTS AT THIS TIME. FALL RISK SCREENING: SCREENING FEW FALLS REPORTED IN THE LAST YEAR WITHOUT INJURY.. PAIN SCREENING: PATIENT HAS A COMPLAINT OF ACUTE OR CHRONIC PAIN :YES LOCATION OF PAIN:LOW BACK, KNEES INTENSITY OF PAIN (SCALE OF 1 TO 10):8 WHAT DOES YOUR PAIN FEEL LIKE:CONTINOUS, THROBBING DURATION:CONTINOUS, AWAKENS FROM SLEEP PAIN IS INCREASED BY:ACTIVITIES, PROLONGED STANDING, OTHERS STANDING UP AFTER LAYING DOWN FOR A WHILE. PAIN IS DECREASED BY:USE OF PAIN MEDICATIONS, SITTING NURSING NOTE: -. PAIN CENTER INTAKE QUESTIONS: DO YOU HAVE A HISTORY OF MRSA? :NO DO YOU TAKE A BLOOD THINNERS? :NO DO YOU HAVE ANY BLEEDING DISORDERS? :NO ANY NEW NUMBNESS OR WEAKNESS IN YOUR LEGS OR ARMS? :NO ANY PACEMAKER,DEFIBRILLATOR, OR DORSAL COLUMN STIMULATOR? :NO DO YOU HAVE ANY RASHES OR OPEN SORES? :NO ARE YOU ALLERGIC TO IV DYE? :NO ARE YOU DIABETIC? :NO ANY NEW PROBLEMS WITH YOUR MEDICATIONS? :NO HAVE YOU RECEIVED A VACCINE IN THE PAST 30 DAYS? :NO DO YOU PLAN TO RECEIVE A VACCINE IN THE NEXT 21 DAYS? :NO DO YOU NEED ANY PRESCRIPTION? :YES HYDROCODONE DO YOU TAKE ANY IMMUNOSUPPRESSIVE MEDICATIONS? :NO DO YOU HAVE ANY KIDNEY OR LIVER DISEASE? :NO IS THERE A CHANCE YOU COULD BE ? :NO ARE YOU BREAST FEEDING? :NO CURRENT MEDICATIONS TAKING BUPROPION HCL ER (XL) 300 MG TABLET EXTENDED RELEASE 24 HOUR TAKE 1 TABLET BY MOUTH IN THE MORNING ORAL TAKING SERTRALINE HCL 50 MG TABLET TK 1 T PO D ORAL TAKING LAMOTRIGINE 25 MG TABLET TK 1 T PO BID ORAL TAKING ADDERALL XR 20 MG CAPSULE EXTENDED RELEASE 24 HOUR 1 CAPSULE IN THE MORNING ORALLY ONCE A DAY TAKING HYDROCODONE-ACETAMINOPHEN 5-325 MG TABLET 1 TABLET NEEDED ORALLY EVERY 12 HRS PRN PAIN TAKING VITAMIN D (ERGOCALCIFEROL) 1.25 MG (15098 UT) CAPSULE 1 CAPSULE ORALLY WEEKLY NOT-TAKING VITAMIN D WEEKLY, NOTES: DUPLICATE NOT-TAKING ULTRAM 50 MG TABLET 1 TAB ORALLY TAKE 1 TABLET TWICE A DAY X5 DAYS THEN 1 A DAY X5 DAYS THEN DISCONTINUE MAXIMUM DAILY DOSE 2 UNKNOWN BUPROPION HCL ER (SR) 100 MG TABLET EXTENDED RELEASE 12 HOUR TK 1 T PO IN THE MORNING ORAL UNKNOWN ADVIL 200 MG TABLET 1 TABLET WITH FOOD OR MILK NEEDED ORALLY THREE TIMES A DAY UNKNOWN SILDENAFIL CITRATE 100 MG TABLET 1 TABLET NEEDED ORALLY PRN 1 HOUR BEFORE INTERCOURSE, NOTES: INSURANCE WOULD NOT COVER MEDICATION LIST REVIEWED AND RECONCILED WITH THE PATIENT PAST MEDICAL HISTORY LEFT KNEE MENISCAL TEAR HX HEADACHES VITAMIN D DEFICIENCY 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 SOCIAL HISTORY GENERAL: TOBACCO USE ARE YOU A:NONSMOKER LATEX QUESTIONNAIRE LATEX ALLERGY : HAVE YOU EVER DEVELOPED ANY TYPE OF REACTION AFTER HANDLING LATEX PRODUCTS SUCH RUBBER GLOVES, CONDOMS, DIAPHRAGMS, BALLOONS, SOCKS, OR UNDERWEAR?NO LATEX ALLERGY : HAVE YOU EVER DEVELOPED ANY TYPE OF REACTION DURING OR AFTER DENTAL APPOINTMENT, VAGINAL/RECTAL EXAMINATION, SURGICAL PROCEDURE, OR ANY OTHER EXPOSURE?NO LATEX RISK : HAVE YOU EVER HAD ANY DIFFICULTY BREATHING OR HIVES AFTER EATING OR HANDLING ANY FRUITS, OR VEGETABLES; SUCH KIWI, BANANAS, STONE FRUITS, OR CHESTNUTSNO LATEX RISK : DO YOU HAVE A PREVIOUS PERSONAL HISTORY OF MORE THAN NINE SURGERIES, SPINA BIFIDA, OR REPEATED CATHERIZATIONS? NO LATEX RISK : ARE YOU FREQUENTLY EXPOSED TO LATEX PRODUCTS IN YOUR OCCUPATION?NO DATE ASKED : 12/15/2020 ALCOHOL USE: NO. ALCOHOL SCREENING DID YOU HAVE A DRINK CONTAINING ALCOHOL IN THE PAST YEAR?NO POINTS0 INTERPRETATIONNEGATIVE RECREATIONAL DRUG USE DRUG USE?NO CAFFEINE CAFFEINE USE?YES SODA = 2 LITERS PER DAY SEXUAL HX HAD SEX IN THE LAST 12 MONTHS (VAGINAL, ORAL, OR ANAL)?YES WITHWOMEN ONLY PREVENTION STRATEGIES DISCUSSED:CONDOMS USE PROTECTION?NO HAVE YOU EVER HAD AN STD?NO JAIN [id number] GNOSTICISM NO SCIENTOLOGY BELIEFS THAT WOULD IMPACT HEALTH CARE. LANGUAGE LANGUAGES SPOKEN:CHINESE EDUCATION LEVEL OF EDUCATION:NOT FINISHED COLLEGE LEARNING BARRIERS / SPECIAL NEEDS CHANGE FROM LAST VISIT?NO BARRIERS TO LEARNING?NO HEARING IMPAIRED?YES [place] BILATERAL VISION IMPAIRED?NO COGNITIVELY IMPAIRED?NO PT REQUIRES ADDITIONAL TEACHING, STATES THAT HE IS COGNITIVELY IMPAIRED. PATIENT IS ADHD. 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 EXERCISE: NO REGULAR EXERCISE. MARITAL STATUS: . OTHERS AT HOME: SPOUSE, CHILDREN. PATIENT DESCRIBES PAIN :HAVE IT ALL THE TIME, THROBBING FROM 0-10, WHAT LEVEL IS YOUR PAIN TODAY?8 PRECIPITATING FACTORS ACTIVITY ALLEVIATING FACTORS MEDICATIONS IMPACT ON FUNCTION YES - HAS THE PATIENT BEEN EDUCATED REGARDING HIS/HER PLAN OF CARE?YES HAS THE PATIENT BEEN EDUCATED REGARDING PAIN, THE RISK FOR PAIN, THE IMPORTANCE OF EFFECTIVE PAIN MANAGEMENT, AND THE PAIN ASSESSMENT PROCESS?YES ADVANCE DIRECTIVE ADVANCE DIRECTIVE DISCUSSED WITH PATIENT:YES PT STATES THAT HE DOES NOT HAVE HCP AND DECLINES ASSISTANCE OR PAPERWORK AT THIS TIME. REVIEW OF SYSTEMS CONSTITUTIONAL: ANY RECENT FEVER NO . CHILLS NO . WEIGHT CHANGE OF UNKNOWN REASONS NO . GASTROENTEROLOGY: NEW UNEXPLAINABLE CHANGES IN BOWEL CONTROL NO . CONSTIPATION NO . GENITOURINARY: ANY NEW CHANGE IN BLADDER CONTROL? NO . NEUROLOGY: NEW ONSET DIZZINESS OR NEUROLOGICAL CHANGES NOT MENTIONED NO . NEW NUMBNESS OR PAIN PATTERNS NOT MENTIONED AND PERTINENT TO TODAY'S VISIT NO . CARDIOLOGY: NEW CHEST PRESSURE NO . PATIENT DENIES NO . RESPIRATORY: UNEXPLAINABLE COUGH NO . NEW SHORTNESS OF BREATH NO . VITAL SIGNS WT 378.6 LBS, HT 70.5 IN, BMI 53.55 INDEX, BP 145/81 MM HG, HR 87 /MIN, RR 20 /MIN, TEMP 98.8 F, OXYGEN SAT % 95%, SAFE IN ENV? (Y/N) YES, NA INITIALS AW 1448, REVIEWED BY: MARIA DOLORES BOBBY MA. EXAMINATION GENERAL EXAMINATION: GENERALNO ACUTE DISTRESS, WELL NOURISHED AND HYDRATED. PSYCHAPPROPRIATE MOOD AND AFFECT . LUNGS:CLEAR TO AUSCULTATION BILATERALLY, NO WHEEZES, RHONCHI, RALES. HEART:NO MURMURS, REGULAR RATE AND RHYTHM. ASSESSMENTS PAIN IN RIGHT KNEE - M25.561 (PRIMARY) TREATMENT PAIN IN RIGHT KNEE REFILL HYDROCODONE-ACETAMINOPHEN TABLET, 5-325 MG, 1 TABLET NEEDED, ORALLY, EVERY 12 HRS PRN PAIN, 30 DAYS, 60 NOTES: 40-YEAR-OLD MALE IN FOR CHRONIC PAIN FOLLOW-UP. GIVEN PRESENTING SYMPTOMS RECOMMENDED CONTINUATION OF CURRENT MEDICATION REGIMEN WITH FOLLOW-UP IN 3 MONTHS. PATIENT HAS EXPRESSED UNDERSTANDING OF AND WAS IN AGREEMENT WITH TREATMENT PLAN. GIVEN TIME TO ASK QUESTIONS AND EXPRESS CONCERNS. , ISTOP REGISTRY REVIEWED AND DEMONSTRATES COMPLLIANCE. (REF # [id number] ) BRINGS IN MEDICATIONS WHICH IS APPROPRIATE FOR WHAT WAS DISPENSED. RECENT URINE TOXICOLOGY REVIEWED. NO UNAUTHORIZED MEDICATIONS. NO ILLICIT SUBSTANCES AND PRESCRIBED MEDICATIONS WERE PRESENT. PROCEDURE CODES FA211 ESTABILISHED PATIENT [facility] CHARGE DISPOSITION & COMMUNICATION FOLLOW UP 3 MONTHS (REASON: KNEE PAIN ) ELECTRONICALLY SIGNED BY JC ENGLAND ON 12/16/2020 AT 09:56 AM EDT DISCLAIMER : THIS IS A VISIT SUMMARY EXTRACTED FROM THE [employer] CHART. IT IS NOT A COPY OF THE [employer] PROGRESS NOTE. MERA
== END ==
LOC: M PAIN 14:45
PROVIDERS: ATTEND Family Medicine
DX: M25.561 Pain in right knee (principal); E55.9 Vitamin D deficiency, unspecified; N52.9 Male erectile dysfunction, unspecified; F90.9 Attention-deficit hyperactivity disorder, unspecified type; Z79.891 Long term (current) use of opiate analgesic; Z79.899 Other long term (current) drug therapy

== ENCOUNTER 2021-01-17 23:10 | Emergency (ER) | payer OTHER ==
[~2021-01-17] VITALS: Ht 175.3 cm; Wt 143.2 kg
[2021-01-17 23:11] VITALS: BP 142/89
[2021-01-17] MEDS ORDERED: LAMO25TA4 (23:22)
[2021-01-17] MEDS ORDERED: BUPR300T92 (23:22)
[2021-01-17] MEDS ORDERED: TOPI25TA10 (23:22)
[2021-01-17] MEDS ORDERED: HYDR-3713 (23:22)
[2021-01-17] MEDS ORDERED: AMPH1CAP16 (23:22)
[2021-01-18] MEDS ORDERED: BENZOCAINE 10% 9GM TUBE (ANBESOL) TOP STA (01:24)
[2021-01-18] MEDS ORDERED: NORCO, ANEXSIA 5/325MG TABLET (HYDROcodone/ACETAMINOPHEN) PO ONE (01:25)
[2021-01-18] MEDS ORDERED: BENZOCAINE 20% HEMORRHOIDAL OINTMENT 28GM TUBE TOP STA (01:30)
[2021-01-18] MEDS ORDERED: BENZOCAINE 20% GEL 9GM TUBE (ANBESOL MAX STRENGTH) TOP STA (01:32)
--- NOTE | 2021-01-18 02:08 | REPVR ---
PROCEDURE INFORMATION: Exam: XR Left Knee Exam date and time: 01/18/2021 1:39 AM Age: 40 years old Clinical indication: Other: Knee gave out; Additional info: Knee "gave out", PT tender anterior, patella TECHNIQUE: Imaging protocol: XR Left knee. Views: 4 or more views. COMPARISON: MRI-Knee WITHOUT CONTRAST 05/22/2018 7:20 AM FINDINGS: Bones/joints: No fractures. No joint effusion. Soft tissues: Subcutaneous edema about the knee with generous soft tissues. There is suggestion of venous varicosities medially. IMPRESSION: 1. Diffuse subcutaneous edema with medial venous varicosities. 2. Otherwise negative left knee. Electronically signed by: Herbie Ruiz On 01/18/2021 02:07:46 AM
[2021-01-18] MEDS ORDERED: ANBE20GE TOP (02:11)
[2021-01-18] MEDS ORDERED: IBUP-1022 PO (02:11)
[2021-01-18] MEDS ORDERED: ANEC4CRE3 TOP (02:11)
== END 2021-01-18 02:36 | disposition home or self-care (01) ==
LOC: M ED 23:10
DX: S89.92XA Unspecified injury of left lower leg, initial encounter (principal); K13.79 Other lesions of oral mucosa; W19.XXXA Unspecified fall, initial encounter; Y92.009 Unspecified place in unspecified non-institutional (private) residence as the place of occurrence of the external cause; Y93.9 Activity, unspecified; Y99.9 Unspecified external cause status; I10 Essential (primary) hypertension; G47.33 Obstructive sleep apnea (adult) (pediatric); R51.9 Headache, unspecified; Z79.899 Other long term (current) drug therapy

== ENCOUNTER → 2021-03-16 | Outpatient (CLI) | payer OTHER ==
[~2021-03-16] MED LIST changes: +AMPH1CAP16; +ANBE20GE TOP; +ANEC4CRE3 TOP; +BUPR300T92; +HYDR-3713; +IBUP-1022 PO; +LAMO25TA4; +TOPI25TA10
--- NOTE | 2021-03-18 04:50 | ECWPNPC ---
PATIENT NAME: YASIR SCHAFER : 1980 GENDER: MALE VISIT DATE: 03/16/2021 DISCHARGE DATE: 03/16/21 1527 VISIT LOCKED DATE TIME: PHYSICIAN: AURORA LLOYD PHYSICIAN PAGER NO: ACTIVE RESOURCE: AURORA LLOYD REASON FOR APPOINTMENT 1. BILAT KNEE PAIN HISTORY OF PRESENT ILLNESS GENERAL: HPI 40-YEAR-OLD MALE IN FOR CHRONIC PAIN FOLLOW-UP. HE RATES HIS PAIN CURRENTLY AT A 9 OUT OF 10 AND DESCRIBES IT CONTINUOUS, SHARP, AND THROBBING. PATIENT ADMITS TO RECENT EXACERBATION OF HIS CHRONIC KNEE PAIN WHEN HE IS LEFT KNEE WAS HYPEREXTENDED. PATIENT WAS SEEN IN THE ER FOR THIS. HE FEELS HIS MEDICATIONS ARE HELPFUL AND DENIES MED SIDE EFFECTS AT THIS TIME.. -. FALL RISK SCREENING: SCREENING FEW FALLS REPORTED IN THE LAST YEAR. ONE RECENT FALL 02/2021 WITH INJURY. PATIENT STATES HE "WENT TO [facility] ER FOR TREATMENT.". PAIN SCREENING: PATIENT HAS A COMPLAINT OF ACUTE OR CHRONIC PAIN :YES LOCATION OF PAIN:KNEES INTENSITY OF PAIN (SCALE OF 1 TO 10):9 WHAT DOES YOUR PAIN FEEL LIKE:CONTINOUS, SHARP, THROBBING DURATION:CONTINOUS, CONSTANT, AWAKENS FROM SLEEP PAIN IS INCREASED BY:ACTIVITIES, PROLONGED STANDING PAIN IS DECREASED BY:USE OF PAIN MEDICATIONS, SITTING NURSING NOTE: -. PAIN CENTER INTAKE QUESTIONS: DO YOU HAVE A HISTORY OF MRSA? :NO DO YOU TAKE A BLOOD THINNERS? :NO DO YOU HAVE ANY BLEEDING DISORDERS? :NO ANY NEW NUMBNESS OR WEAKNESS IN YOUR LEGS OR ARMS? :NO ANY PACEMAKER,DEFIBRILLATOR, OR DORSAL COLUMN STIMULATOR? :NO DO YOU HAVE ANY RASHES OR OPEN SORES? :NO ARE YOU ALLERGIC TO IV DYE? :NO ARE YOU DIABETIC? :NO ANY NEW PROBLEMS WITH YOUR MEDICATIONS? :NO HAVE YOU RECEIVED A VACCINE IN THE PAST 30 DAYS? :YES IF SO WHAT VACCINE AND WHEN? FIRST COVID VACCINATION 02/2021 DO YOU PLAN TO RECEIVE A VACCINE IN THE NEXT 21 DAYS? :YES DO YOU NEED ANY PRESCRIPTION? :YES HYDROCODONE DO YOU TAKE ANY IMMUNOSUPPRESSIVE MEDICATIONS? :NO DO YOU HAVE ANY KIDNEY OR LIVER DISEASE? :NO IS THERE A CHANCE YOU COULD BE ? :NO ARE YOU BREAST FEEDING? :NO CURRENT MEDICATIONS TAKING BUPROPION HCL ER (XL) 300 MG TABLET EXTENDED RELEASE 24 HOUR TAKE 1 TABLET BY MOUTH IN THE MORNING ORAL TAKING SERTRALINE HCL 50 MG TABLET TK 1 T PO D ORAL TAKING LAMOTRIGINE 25 MG TABLET TK 1 T PO BID ORAL TAKING ADDERALL XR 20 MG CAPSULE EXTENDED RELEASE 24 HOUR 1 CAPSULE IN THE MORNING ORALLY ONCE A DAY TAKING VITAMIN D (ERGOCALCIFEROL) 1.25 MG (61812 UT) CAPSULE 1 CAPSULE ORALLY WEEKLY TAKING HYDROCODONE-ACETAMINOPHEN 5-325 MG TABLET 1 TABLET NEEDED ORALLY EVERY 12 HRS PRN PAIN UNKNOWN VITAMIN D WEEKLY, NOTES: DUPLICATE UNKNOWN ULTRAM 50 MG TABLET 1 TAB ORALLY TAKE 1 TABLET TWICE A DAY X5 DAYS THEN 1 A DAY X5 DAYS THEN DISCONTINUE MAXIMUM DAILY DOSE 2 UNKNOWN BUPROPION HCL ER (SR) 100 MG TABLET EXTENDED RELEASE 12 HOUR TK 1 T PO IN THE MORNING ORAL UNKNOWN ADVIL 200 MG TABLET 1 TABLET WITH FOOD OR MILK NEEDED ORALLY THREE TIMES A DAY UNKNOWN SILDENAFIL CITRATE 100 MG TABLET 1 TABLET NEEDED ORALLY PRN 1 HOUR BEFORE INTERCOURSE, NOTES: INSURANCE WOULD NOT COVER MEDICATION LIST REVIEWED AND RECONCILED WITH THE PATIENT PAST MEDICAL HISTORY LEFT KNEE MENISCAL TEAR HX HEADACHES VITAMIN D DEFICIENCY 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 SOCIAL HISTORY GENERAL: TOBACCO USE ARE YOU A:NONSMOKER LATEX QUESTIONNAIRE LATEX ALLERGY : HAVE YOU EVER DEVELOPED ANY TYPE OF REACTION AFTER HANDLING LATEX PRODUCTS SUCH RUBBER GLOVES, CONDOMS, DIAPHRAGMS, BALLOONS, SOCKS, OR UNDERWEAR?NO LATEX ALLERGY : HAVE YOU EVER DEVELOPED ANY TYPE OF REACTION DURING OR AFTER DENTAL APPOINTMENT, VAGINAL/RECTAL EXAMINATION, SURGICAL PROCEDURE, OR ANY OTHER EXPOSURE?NO LATEX RISK : HAVE YOU EVER HAD ANY DIFFICULTY BREATHING OR HIVES AFTER EATING OR HANDLING ANY FRUITS, OR VEGETABLES; SUCH KIWI, BANANAS, STONE FRUITS, OR CHESTNUTSNO LATEX RISK : DO YOU HAVE A PREVIOUS PERSONAL HISTORY OF MORE THAN NINE SURGERIES, SPINA BIFIDA, OR REPEATED CATHERIZATIONS? NO LATEX RISK : ARE YOU FREQUENTLY EXPOSED TO LATEX PRODUCTS IN YOUR OCCUPATION?NO DATE ASKED : 03/16/2021 ALCOHOL USE: NO. ALCOHOL SCREENING DID YOU HAVE A DRINK CONTAINING ALCOHOL IN THE PAST YEAR?NO POINTS0 INTERPRETATIONNEGATIVE RECREATIONAL DRUG USE DRUG USE?NO CAFFEINE CAFFEINE USE?YES SODA = 2 LITERS PER DAY SEXUAL HX HAD SEX IN THE LAST 12 MONTHS (VAGINAL, ORAL, OR ANAL)?YES WITHWOMEN ONLY PREVENTION STRATEGIES DISCUSSED:CONDOMS USE PROTECTION?NO HAVE YOU EVER HAD AN STD?NO CONGREGATIONAL [id number] AMISH NO SHINTO BELIEFS THAT WOULD IMPACT HEALTH CARE. LANGUAGE LANGUAGES SPOKEN:CROATIAN EDUCATION LEVEL OF EDUCATION:NOT FINISHED COLLEGE LEARNING BARRIERS / SPECIAL NEEDS CHANGE FROM LAST VISIT?NO BARRIERS TO LEARNING?NO HEARING IMPAIRED?YES ALUTIIQ BILATERAL VISION IMPAIRED?NO COGNITIVELY IMPAIRED?NO PT REQUIRES ADDITIONAL TEACHING, STATES THAT HE IS COGNITIVELY IMPAIRED. PATIENT IS ADHD. READINESS TO LEARN?YES LEARNING PREFERENCES?NO LEARNING CAPABILITIES PRESENT?YES EMOTIONAL BARRIERS?NO SPECIAL DEVICES?YES :WALKER, WHEELCHAIR, OTHER SPOOL MAKER NEEDED?NO DOMESTIC VIOLENCE DO YOU FEEL SAFE IN YOUR ENVIRONMENT?YES DIET: REGULAR. EXERCISE: NO REGULAR EXERCISE. MARITAL STATUS: . OTHERS AT HOME: SPOUSE, CHILDREN. PATIENT DESCRIBES PAIN :HAVE IT ALL THE TIME, THROBBING FROM 0-10, WHAT LEVEL IS YOUR PAIN TODAY?8 PRECIPITATING FACTORS ACTIVITY ALLEVIATING FACTORS MEDICATIONS IMPACT ON FUNCTION YES - HAS THE PATIENT BEEN EDUCATED REGARDING HIS/HER PLAN OF CARE?YES HAS THE PATIENT BEEN EDUCATED REGARDING PAIN, THE RISK FOR PAIN, THE IMPORTANCE OF EFFECTIVE PAIN MANAGEMENT, AND THE PAIN ASSESSMENT PROCESS?YES ADVANCE DIRECTIVE ADVANCE DIRECTIVE DISCUSSED WITH PATIENT:YES PT STATES THAT HE DOES NOT HAVE HCP AND DECLINES ASSISTANCE OR PAPERWORK AT THIS TIME. REVIEW OF SYSTEMS CONSTITUTIONAL: ANY RECENT FEVER NO . CHILLS NO . WEIGHT CHANGE OF UNKNOWN REASONS NO . GASTROENTEROLOGY: NEW UNEXPLAINABLE CHANGES IN BOWEL CONTROL NO . CONSTIPATION NO . GENITOURINARY: ANY NEW CHANGE IN BLADDER CONTROL? NO . NEUROLOGY: NEW ONSET DIZZINESS OR NEUROLOGICAL CHANGES NOT MENTIONED NO . NEW NUMBNESS OR PAIN PATTERNS NOT MENTIONED AND PERTINENT TO TODAY'S VISIT NO . CARDIOLOGY: NEW CHEST PRESSURE NO . PATIENT DENIES NO . RESPIRATORY: UNEXPLAINABLE COUGH NO . NEW SHORTNESS OF BREATH NO . VITAL SIGNS WT 378.6 LBS, HT 70.5 IN, BMI 53.55 INDEX, BP 158/87 MM HG, HR 89 /MIN, RR 18 /MIN, TEMP 99.1 F, OXYGEN SAT % 97%, SAFE IN ENV? (Y/N) YES, REVIEWED BY: MARIA DOLORES BOBBY MA. EXAMINATION GENERAL EXAMINATION: GENERALNO ACUTE DISTRESS, WELL NOURISHED AND HYDRATED. PSYCHAPPROPRIATE MOOD AND AFFECT . LUNGS:CLEAR TO AUSCULTATION BILATERALLY, NO WHEEZES, RHONCHI, RALES. HEART:NO MURMURS, REGULAR RATE AND RHYTHM. ASSESSMENTS KNEE PAIN - M25.569 (PRIMARY) PAIN IN RIGHT KNEE - M25.561 TREATMENT KNEE PAIN NOTES: 40-YEAR-OLD MALE IN FOR CHRONIC PAIN FOLLOW-UP. GIVEN THE PATIENT'S RECENT EXACERBATION OF HIS CHRONIC CONDITION RECOMMEND INCREASING MD TO 3 TABS DAILY WITH A TOTAL OF 75 TABS PER MONTH. PATIENT WAS NOTIFIED HE WOULD NOT HAVE ENOUGH TO TAKE 3 A DAY EVERYDAY AND THAT THE 75 TABS SHOULD LAST 30 DAYS. PATIENT IS EXPRESSED UNDERSTANDING OF AND WAS IN AGREEMENT WITH TREATMENT PLAN. GIVEN TIME ASKED QUESTIONS AND EXPRESS CONCERNS. [employer] REVIEWED AND DEMONSTRATES COMPLLIANCE. (REF # [id number] ) BRINGS IN MEDICATIONS WHICH IS APPROPRIATE FOR WHAT WAS DISPENSED. RECENT URINE TOXICOLOGY REVIEWED. NO UNAUTHORIZED MEDICATIONS. NO ILLICIT SUBSTANCES AND PRESCRIBED MEDICATIONS WERE PRESENT. PAIN IN RIGHT KNEE INCREASE HYDROCODONE-ACETAMINOPHEN TABLET, 5-325 MG, 1 TABLET NEEDED, ORALLY, EVERY 8 HRS PRN PAIN MDD 3 75 TABS TO LAST 1 MONTH, 30 DAYS, 75 DISPOSITION & COMMUNICATION FOLLOW UP 3 MONTHS (REASON: KNEE PAIN) ELECTRONICALLY SIGNED BY JC ENGLAND ON 03/17/2021 AT 01:24 PM EDT DISCLAIMER : THIS IS A VISIT SUMMARY EXTRACTED FROM THE [employer] CHART. IT IS NOT A COPY OF THE [employer] PROGRESS NOTE. MERA
== END ==
LOC: M PAIN 14:45
PROVIDERS: ATTEND Family Medicine
DX: M25.561 Pain in right knee (principal); M25.562 Pain in left knee; E55.9 Vitamin D deficiency, unspecified; N52.9 Male erectile dysfunction, unspecified; Z79.891 Long term (current) use of opiate analgesic; F90.9 Attention-deficit hyperactivity disorder, unspecified type; Z79.899 Other long term (current) drug therapy

== ENCOUNTER → 2021-07-01 | Outpatient (CLI) | payer OTHER | LOC: M PAIN 14:00 | PROVIDERS: ATTEND Anesthesiology | DX: M25.561 Pain in right knee (principal); M25.562 Pain in left knee; M79.2 Neuralgia and neuritis, unspecified; S83.207A Unspecified tear of unspecified meniscus, current injury, left knee, initial encounter; F90.9 Attention-deficit hyperactivity disorder, unspecified type; E55.9 Vitamin D deficiency, unspecified; X58.XXXA Exposure to other specified factors, initial encounter; Y92.9 Unspecified place or not applicable; Y93.9 Activity, unspecified; Y99.9 Unspecified external cause status; N52.9 Male erectile dysfunction, unspecified; Z79.891 Long term (current) use of opiate analgesic; Z79.899 Other long term (current) drug therapy ==

== ENCOUNTER → 2021-10-13 | Outpatient (CLI) | payer OTHER | LOC: M PAIN 14:00 | PROVIDERS: ATTEND Anesthesiology | DX: M25.561 Pain in right knee (principal); M25.562 Pain in left knee; M94.20 Chondromalacia, unspecified site; M79.2 Neuralgia and neuritis, unspecified; E55.9 Vitamin D deficiency, unspecified; N52.9 Male erectile dysfunction, unspecified; G47.33 Obstructive sleep apnea (adult) (pediatric); Z79.891 Long term (current) use of opiate analgesic; Z79.899 Other long term (current) drug therapy ==

== ENCOUNTER → 2022-01-27 | Outpatient (CLI) | payer OTHER | LOC: M PAIN 14:00 | PROVIDERS: ATTEND Anesthesiology | DX: M25.561 Pain in right knee (principal); M25.562 Pain in left knee; M94.20 Chondromalacia, unspecified site; M25.579 Pain in unspecified ankle and joints of unspecified foot; E55.9 Vitamin D deficiency, unspecified; N52.9 Male erectile dysfunction, unspecified; F90.9 Attention-deficit hyperactivity disorder, unspecified type; Z79.891 Long term (current) use of opiate analgesic; Z79.899 Other long term (current) drug therapy ==

== ENCOUNTER → 2022-02-28 | Outpatient (CLI) | payer OTHER | LOC: M SOG 08:30 | PROVIDERS: ATTEND Orthopaedic Surgery Adult Reconstructive Orthopaedic Surgery | DX: M25.561 Pain in right knee (principal); M25.562 Pain in left knee ==

== ENCOUNTER → 2022-04-04 | Outpatient (CLI) | payer OTHER | LOC: M RAD 13:46 | PROVIDERS: ATTEND Anesthesiology | DX: M25.561 Pain in right knee (principal) ==

== ENCOUNTER → 2022-05-18 | Outpatient (CLI) | payer OTHER | LOC: M PAIN 11:15 | PROVIDERS: ATTEND Anesthesiology | DX: M25.569 Pain in unspecified knee (principal); M25.579 Pain in unspecified ankle and joints of unspecified foot; M95.8 Other specified acquired deformities of musculoskeletal system; E55.9 Vitamin D deficiency, unspecified; G47.33 Obstructive sleep apnea (adult) (pediatric); N52.9 Male erectile dysfunction, unspecified; F90.9 Attention-deficit hyperactivity disorder, unspecified type; Z79.891 Long term (current) use of opiate analgesic; Z79.899 Other long term (current) drug therapy ==

== ENCOUNTER → 2022-07-06 | Outpatient (CLI) | payer OTHER | LOC: M PAIN 15:15 | PROVIDERS: ATTEND Anesthesiology | DX: M25.569 Pain in unspecified knee (principal); M94.261 Chondromalacia, right knee; M94.262 Chondromalacia, left knee; E55.9 Vitamin D deficiency, unspecified; N52.9 Male erectile dysfunction, unspecified; F90.9 Attention-deficit hyperactivity disorder, unspecified type; Z79.891 Long term (current) use of opiate analgesic; Z79.899 Other long term (current) drug therapy ==

== ENCOUNTER → 2022-07-25 | Outpatient (REF) | payer OTHER ==
[2022-07-25 18:03] LABS: BASO # 0.1 10^3/uL (0.0-0.2); BASO % 0.6 % (0.0-1.0); EOS # 0.2 10^3/uL (0.0-0.5); EOS % 2.4 % (0.0-3.0); HEMATOCRIT 40.6 % (42.0-52.0); HEMOGLOBIN 13.4 g/dl (13.5-17.5); LYMPH # 1.8 10^3/uL (1.5-5.0); MEAN CORPUSCULAR HEMOGLOBIN 28.5 pg (27.0-33.0); MEAN CORPUSCULAR VOLUME 86.4 fl (80.0-96.0); MONO # 0.8 10^3/uL (0.0-0.8); NEUTROPHILS # 4.9 10^3/uL (1.5-8.5); NEUTROPHILS % 63.5 % (36.0-66.0); PLATELET COUNT, AUTOMATED 186 10^3/uL (150-450); WHITE BLOOD COUNT 7.8 10^3/uL (4.0-10.0)
[2022-07-25 18:48] LABS: HEMOGLOBIN A1c 4.3 % (4.0-6.0)
[2022-07-25 19:50] LABS: THYROID STIMULATING HORMONE 2.711 uIU/ML (0.55-4.78)
[2022-07-25 19:54] LABS: ALBUMIN 3.5 G/DL (3.2-5.2); ALKALINE PHOSPHATASE 90 U/L (46-116); ALT/SGPT 29 U/L (7.0-40); AST/SGOT 17 U/L (<34); BLOOD UREA NITROGEN 18 MG/DL (9-23); CALCIUM LEVEL 8.4 MG/DL (8.5-10.1); CARBON DIOXIDE LEVEL 27 MMOL/L (20-31); CHLORIDE LEVEL 103 MMOL/L (98-107); CHOLESTEROL LEVEL 97 MG/DL (<200); CHOLESTEROL RISK RATIO 3.33 (<5); CREATININE FOR GFR 0.84 MG/DL (0.70-1.30); GLOMERULAR FILTRATION RATE > 60.0 (>60); GLUCOSE, FASTING 81 MG/DL (60-100); HDL CHOLESTEROL 29.1 MG/DL (>40); LDL CHOLESTEROL 50.9 MG/DL (<100); NON-HDL-C 68 MG/DL; POTASSIUM SERUM 4.2 MMOL/L (3.5-5.1); SODIUM LEVEL 139 MMOL/L (136-145); TOTAL PROTEIN 6.9 G/DL (5.7-8.2); TRIGLYCERIDES LEVEL 85 MG/DL (<150)
== END ==
LOC: M LAB REF 16:30
PROVIDERS: ATTEND Nurse Practitioner Family
DX: R39.9 Unspecified symptoms and signs involving the genitourinary system (principal)

== ENCOUNTER → 2022-08-31 | Outpatient (CLI) | payer OTHER | LOC: M SOG 08:00 | PROVIDERS: ATTEND Orthopaedic Surgery Adult Reconstructive Orthopaedic Surgery | DX: M25.561 Pain in right knee (principal); M25.562 Pain in left knee ==

== ENCOUNTER → 2022-09-08 | Outpatient (CLI) | payer OTHER | LOC: M SOG 08:47 | PROVIDERS: ATTEND Orthopaedic Surgery Adult Reconstructive Orthopaedic Surgery | DX: M25.561 Pain in right knee (principal); M25.562 Pain in left knee ==

== ENCOUNTER → 2022-10-26 | Outpatient (CLI) | payer OTHER | LOC: M PAIN 11:00 | PROVIDERS: ATTEND Anesthesiology | DX: M25.561 Pain in right knee (principal); M25.562 Pain in left knee; M17.0 Bilateral primary osteoarthritis of knee; E55.9 Vitamin D deficiency, unspecified; N52.9 Male erectile dysfunction, unspecified; F90.9 Attention-deficit hyperactivity disorder, unspecified type; Z79.891 Long term (current) use of opiate analgesic; Z79.899 Other long term (current) drug therapy ==

== ENCOUNTER 2022-11-14 17:22 | Emergency (ER) | payer OTHER ==
[~2022-11-14] VITALS: Ht 175.3 cm; Wt 165.3 kg
[2022-11-14 17:23] VITALS: BP 188/95
[2022-11-14] MEDS ORDERED: NYST-13 TOP (20:16)
[2022-11-14] MEDS ORDERED: AMOX500C PO (20:16)
[2022-11-14] MEDS ORDERED: AMOXICILLIN 500 MG CAP PO ONE (20:20)
[2022-11-14] MEDS ORDERED: GNP15SYP PO (20:25)
== END 2022-11-14 20:42 | disposition home or self-care (01) ==
LOC: M ED 17:22
DX: J02.0 Streptococcal pharyngitis (principal); B37.2 Candidiasis of skin and nail; I10 Essential (primary) hypertension; R51.9 Headache, unspecified; G47.33 Obstructive sleep apnea (adult) (pediatric); M54.9 Dorsalgia, unspecified; F32.A Depression, unspecified; F41.9 Anxiety disorder, unspecified; Z79.899 Other long term (current) drug therapy

== ENCOUNTER 2023-02-20 14:39 | Emergency (ER) | payer OTHER ==
[~2023-02-20] VITALS: Ht 172.7 cm; Wt 165.3 kg
[~2023-02-20 14:39] MED LIST changes: +GNP15SYP PO; +NYST-13 TOP
[2023-02-20 14:41] VITALS: BP 149/90; TEMP 98.5
[2023-02-20] MEDS ORDERED: PERCOCET 5MG/325MG TAB PO ONE (19:30)
[2023-02-20 20:31] VITALS: O2SAT 94
[2023-02-20 20:52] LABS: BASO % 0.7 % (0.0-1.0); EOS # 0.2 10^3/uL (0.0-0.5); EOS % 3.5 % (0.0-3.0); HEMATOCRIT 36.6 % (42.0-52.0); LYMPH # 1.5 10^3/uL (1.5-5.0); LYMPH % 26.2 % (24.0-44.0); MEAN CORPUSCULAR HEMOGLOBIN 27.8 pg (27.0-33.0); MEAN CORPUSCULAR HGB CONC 32.8 g/dl (32.0-36.5); MEAN CORPUSCULAR VOLUME 84.9 fl (80.0-96.0); MONO # 0.6 10^3/uL (0.0-0.8); MONO % 10.3 % (2.0-8.0); NEUTROPHILS # 3.3 10^3/uL (1.5-8.5); NEUTROPHILS % 58.9 % (36.0-66.0); PLATELET COUNT, AUTOMATED 194 10^3/uL (150-450); RED BLOOD COUNT 4.31 10^6/uL (4.30-6.10); WHITE BLOOD COUNT 5.7 10^3/uL (4.0-10.0)
[2023-02-20 20:57] LABS: ERYTHROCYTE SEDIMENTATION RATE 64 mm/hr (0-15)
[2023-02-20] MEDS ORDERED: OXYC1TAB23 PO (22:06)
[2023-02-20] MEDS ORDERED: DOXY-443 PO (22:06)
[2023-02-20] MEDS ORDERED: DOXYCYCLINE HYCLATE 100MG TABLET PO ONE (22:10)
== END 2023-02-20 22:17 | disposition home or self-care (01) ==
LOC: M ED 14:39
DX: L03.116 Cellulitis of left lower limb (principal); I10 Essential (primary) hypertension; R51.9 Headache, unspecified; G47.33 Obstructive sleep apnea (adult) (pediatric); Z79.899 Other long term (current) drug therapy

== ENCOUNTER 2023-03-21 22:17 | Emergency (ER) | payer OTHER ==
[~2023-03-21] VITALS: Ht 172.7 cm; Wt 163.6 kg
[~2023-03-21 22:17] MED LIST changes: +DOXY-443 PO; +OXYC1TAB23 PO
[2023-03-21 22:21] VITALS: TEMP 98
[2023-03-22 01:49] LABS: BASO # 0.1 10^3/uL (0.0-0.2); BASO % 0.6 % (0.0-1.0); BLOOD UREA NITROGEN 10 MG/DL (9-23); CALCIUM LEVEL 7.9 MG/DL (8.5-10.1); CARBON DIOXIDE LEVEL 28 MMOL/L (20-31); CHLORIDE LEVEL 104 MMOL/L (98-107); CREATININE FOR GFR 0.85 MG/DL (0.70-1.30); EOS # 0.2 10^3/uL (0.0-0.5); EOS % 2.9 % (0.0-3.0); GLOMERULAR FILTRATION RATE > 60.0 (>60); GLUCOSE, FASTING 94 MG/DL (60-100); HEMATOCRIT 38.6 % (42.0-52.0); HEMOGLOBIN 12.9 g/dl (13.5-17.5); LYMPH # 1.5 10^3/uL (1.5-5.0); LYMPH % 18.5 % (24.0-44.0); MEAN CORPUSCULAR HEMOGLOBIN 28.2 pg (27.0-33.0); MEAN CORPUSCULAR HGB CONC 33.4 g/dl (32.0-36.5); MEAN CORPUSCULAR VOLUME 84.5 fl (80.0-96.0); MONO # 0.6 10^3/uL (0.0-0.8); MONO % 7.7 % (2.0-8.0); NEUTROPHILS # 5.5 10^3/uL (1.5-8.5); NEUTROPHILS % 69.8 % (36.0-66.0); PLATELET COUNT, AUTOMATED 194 10^3/uL (150-450); POTASSIUM SERUM 3.4 MMOL/L (3.5-5.1); RED BLOOD COUNT 4.57 10^6/uL (4.30-6.10); SODIUM LEVEL 139 MMOL/L (136-145); WHITE BLOOD COUNT 7.8 10^3/uL (4.0-10.0)
[2023-03-22] MEDS ORDERED: OXYC1TAB23 PO (05:57)
[2023-03-22] MEDS ORDERED: PERCOCET 5MG/325MG TAB PO ONE (06:00)
[2023-03-22 06:15] VITALS: BP 155/93
[2023-03-22 06:23] VITALS: O2SAT 98
== END 2023-03-22 06:42 | disposition home or self-care (01) ==
LOC: M ED 22:17
DX: L02.91 Cutaneous abscess, unspecified (principal); F32.A Depression, unspecified; F90.9 Attention-deficit hyperactivity disorder, unspecified type; F43.10 Post-traumatic stress disorder, unspecified; Z79.2 Long term (current) use of antibiotics; Z79.899 Other long term (current) drug therapy

== ENCOUNTER → 2023-04-14 | Outpatient (CLI) | payer OTHER | LOC: M PAIN 11:00 | PROVIDERS: ATTEND Anesthesiology | DX: Z51.81 Encounter for therapeutic drug level monitoring (principal); Z79.891 Long term (current) use of opiate analgesic; M25.561 Pain in right knee; M25.562 Pain in left knee; M22.41 Chondromalacia patellae, right knee; M22.42 Chondromalacia patellae, left knee; M17.0 Bilateral primary osteoarthritis of knee; E55.9 Vitamin D deficiency, unspecified; N52.9 Male erectile dysfunction, unspecified; F90.9 Attention-deficit hyperactivity disorder, unspecified type; Z79.899 Other long term (current) drug therapy ==

== ENCOUNTER → 2023-04-27 | Outpatient (REF) | payer OTHER | LOC: M LAB REF 11:30 | PROVIDERS: ATTEND Nurse Practitioner Family | DX: T14.8XXD Other injury of unspecified body region, subsequent encounter (principal) ==

== ENCOUNTER → 2023-06-14 | Outpatient (CLI) | payer OTHER | LOC: M PAIN 16:00 | PROVIDERS: ATTEND Anesthesiology | DX: M17.0 Bilateral primary osteoarthritis of knee (principal); M25.561 Pain in right knee; M25.562 Pain in left knee; E55.9 Vitamin D deficiency, unspecified; N52.9 Male erectile dysfunction, unspecified; F90.9 Attention-deficit hyperactivity disorder, unspecified type; Z79.891 Long term (current) use of opiate analgesic; Z79.899 Other long term (current) drug therapy ==

== ENCOUNTER 2023-06-18 02:36 | Emergency (ER) | payer OTHER ==
[~2023-06-18] VITALS: Ht 175.3 cm; Wt 165.9 kg
[2023-06-18 02:37] VITALS: BP 133/89; TEMP 97.6; O2SAT 98
== END 2023-06-18 03:31 | disposition left against medical advice (07) ==
LOC: M ED 02:36
DX: Z53.21 Procedure and treatment not carried out due to patient leaving prior to being seen by health care provider (principal)

== ENCOUNTER 2023-06-24 05:26 | Emergency (ER) | payer OTHER ==
[~2023-06-24] VITALS: Ht 175.3 cm; Wt 157.0 kg
[2023-06-24] MEDS ORDERED: NS 1,000 ML IV ONE (07:45)
[2023-06-24] MEDS ORDERED: ONDANSETRON 4MG 2ML VIAL IV ONE (07:45)
[2023-06-24] MEDS ORDERED: KETOROLAC 30 MG/ML 1ML VIAL IV ONE (07:45)
[2023-06-24 08:50] LABS: BASO % 0.4 % (0.0-1.0); EOS % 0.7 % (0.0-3.0); HEMATOCRIT 34.8 % (42.0-52.0); HEMOGLOBIN 11.6 g/dl (13.5-17.5); LYMPH # 0.9 10^3/uL (1.5-5.0); LYMPH % 32.6 % (24.0-44.0); MEAN CORPUSCULAR HEMOGLOBIN 27.8 pg (27.0-33.0); MEAN CORPUSCULAR HGB CONC 33.3 g/dl (32.0-36.5); MEAN CORPUSCULAR VOLUME 83.3 fl (80.0-96.0); MONO # 0.4 10^3/uL (0.0-0.8); MONO % 15.4 % (2.0-8.0); NEUTROPHILS # 1.4 10^3/uL (1.5-8.5); NEUTROPHILS % 50.5 % (36.0-66.0); PLATELET COUNT, AUTOMATED 186 10^3/uL (150-450); RED BLOOD COUNT 4.18 10^6/uL (4.30-6.10); WHITE BLOOD COUNT 2.7 10^3/uL (4.0-10.0)
[2023-06-24 09:13] LABS: BLOOD UREA NITROGEN 17 MG/DL (9-23); CALCIUM LEVEL 7.7 MG/DL (8.5-10.1); CARBON DIOXIDE LEVEL 30 MMOL/L (20-31); CHLORIDE LEVEL 98 MMOL/L (98-107); CREATININE FOR GFR 1.09 MG/DL (0.70-1.30); GLOMERULAR FILTRATION RATE > 60.0 (>60); GLUCOSE, FASTING 111 MG/DL (60-100); POTASSIUM SERUM 3.7 MMOL/L (3.5-5.1); SODIUM LEVEL 135 MMOL/L (136-145)
[2023-06-24] MEDS ORDERED: BENZ200C70 PO (10:24)
[2023-06-24] MEDS ORDERED: REFR0.5D8 OP (10:24)
[2023-06-24] MEDS ORDERED: AMOX875T2 PO (10:24)
[2023-06-24 10:47] VITALS: BP 179/90; TEMP 97.4; O2SAT 97
== END 2023-06-24 10:49 | disposition home or self-care (01) ==
LOC: M ED 05:26
DX: J09.X2 Influenza due to identified novel influenza A virus with other respiratory manifestations (principal); H66.92 Otitis media, unspecified, left ear; H11.31 Conjunctival hemorrhage, right eye; I10 Essential (primary) hypertension; Z79.899 Other long term (current) drug therapy
CPT/HCPCS: 71046; 80048; 83605; 85025; 87400; 87426; 96361; 96374; 96375; 99284; J1885; J2405

== ENCOUNTER → 2023-09-06 | Outpatient (CLI) | payer OTHER ==
[~2023-09-06] MED LIST changes: +AMOX875T2 PO; +BENZ200C70 PO; +REFR0.5D8 OP
== END ==
LOC: M PAIN 14:15
PROVIDERS: ATTEND Anesthesiology
DX: M17.0 Bilateral primary osteoarthritis of knee (principal); E55.9 Vitamin D deficiency, unspecified; Z79.891 Long term (current) use of opiate analgesic; Z79.899 Other long term (current) drug therapy

== ENCOUNTER → 2023-10-10 | Outpatient (CLI) | payer OTHER | LOC: M SOG 07:50 | PROVIDERS: ATTEND Physician Assistant | DX: M25.561 Pain in right knee (principal); M25.562 Pain in left knee ==

== ENCOUNTER → 2023-11-17 | Outpatient (REF) | payer OTHER ==
[2023-11-17 13:27] LABS: APPEARANCE, URINE CLEAR (CLEAR); BACTERIA, URINE AUTO NEGATIVE (NEGATIVE); BILIRUBIN, URINE AUTO NEGATIVE (NEGATIVE); BLOOD, URINE BLOOD NEGATIVE (NEGATIVE); COLOR, URINE YELLOW (YELLOW); GLUCOSE, URINE (UA) AUTO NEGATIVE (NEGATIVE); KETONE, URINE AUTO NEGATIVE (NEGATIVE); LEUKOCYTE ESTERASE, URINE AUTO NEGATIVE (NEGATIVE); MUCUS, URINE SMALL (NEGATIVE); NITRITE, URINE AUTO NEGATIVE (NEGATIVE); PROTEIN, URINE AUTO NEGATIVE (NEGATIVE); RBC, URINE AUTO 0 /HPF (0-3); SPECIFIC GRAVITY URINE AUTO 1.019 (1.002-1.035); SQUAMOUS EPITHELIAL CELL UR AU 0 /HPF (0-6); WBC, URINE AUTO 0 /HPF (0-3)
[2023-11-17 16:44] LABS: BASO % 0.6 % (0.0-1.0); EOS % 1.7 % (0.0-3.0); HEMATOCRIT 42.2 % (42.0-52.0); HEMOGLOBIN 13.6 g/dl (13.5-17.5); LYMPH % 20.2 % (24.0-44.0); MEAN CORPUSCULAR HEMOGLOBIN 27.9 pg (27.0-33.0); MEAN CORPUSCULAR HGB CONC 32.2 g/dl (32.0-36.5); MEAN CORPUSCULAR VOLUME 86.7 fl (80.0-96.0); MONO % 10.6 % (2.0-8.0); NEUTROPHILS % 66.6 % (36.0-66.0); PLATELET COUNT, AUTOMATED 219 10^3/uL (150-450); RED BLOOD COUNT 4.87 10^6/uL (4.30-6.10); WHITE BLOOD COUNT 6.4 10^3/uL (4.0-10.0)
[2023-11-17 16:45] LABS: EOS # 0.1 10^3/uL (0.0-0.5); LYMPH # 1.3 10^3/uL (1.5-5.0); MONO # 0.7 10^3/uL (0.0-0.8); NEUTROPHILS # 4.3 10^3/uL (1.5-8.5)
[2023-11-17 16:57] LABS: HEMOGLOBIN A1c 4.5 % (4.0-6.0)
[2023-11-17 17:09] LABS: BLOOD UREA NITROGEN 13 MG/DL (9-23); CALCIUM LEVEL 8.8 MG/DL (8.5-10.1); CARBON DIOXIDE LEVEL 32 MMOL/L (20-31); CHLORIDE LEVEL 102 MMOL/L (98-107); CHOLESTEROL LEVEL 95 MG/DL (<200); CHOLESTEROL RISK RATIO 3.59 (<5); CREATININE FOR GFR 0.85 MG/DL (0.70-1.30); GLOMERULAR FILTRATION RATE > 60.0 (>60); GLUCOSE, FASTING 96 MG/DL (60-100); HDL CHOLESTEROL 26.4 MG/DL (>40); LDL CHOLESTEROL 49.4 MG/DL (<100); NON-HDL-C 68.6 MG/DL; SODIUM LEVEL 135 MMOL/L (136-145); TRIGLYCERIDES LEVEL 96 MG/DL (<150)
== END ==
LOC: M LAB REF 12:40
PROVIDERS: ATTEND Nurse Practitioner Family
DX: N39.3 Stress incontinence (female) (male) (principal); Z79.899 Other long term (current) drug therapy; E66.01 Morbid (severe) obesity due to excess calories; D72.819 Decreased white blood cell count, unspecified; E83.51 Hypocalcemia; Z11.9 Encounter for screening for infectious and parasitic diseases, unspecified

== ENCOUNTER → 2024-05-03 | Outpatient (REF) | payer OTHER ==
[~2024-05-03] MED LIST changes: +BUPR-597; -BUPR300T92; +DOXY-323 PO; -DOXY-443 PO
[2024-05-03 14:22] LABS: BLOOD UREA NITROGEN 18 MG/DL (9-23); CALCIUM LEVEL 8.9 MG/DL (8.5-10.1); CARBON DIOXIDE LEVEL 30 MMOL/L (20-31); CHLORIDE LEVEL 103 MMOL/L (98-107); CREATININE FOR GFR 0.97 MG/DL (0.70-1.30); GLOMERULAR FILTRATION RATE > 60.0 (>60); GLUCOSE, FASTING 83 MG/DL (60-100); POTASSIUM SERUM 4.4 MMOL/L (3.5-5.1); SODIUM LEVEL 136 MMOL/L (136-145)
== END ==
LOC: M LAB REF 12:56
PROVIDERS: ATTEND Nurse Practitioner Family
DX: I10 Essential (primary) hypertension (principal)

== ENCOUNTER → 2025-03-18 | Outpatient (CLI) | payer OTHER ==
[~2025-03-18] MED LIST changes: -BUPR-597; +BUPR-766; -DOXY-323 PO; +DOXY-441 PO; +LAMO-18; -LAMO25TA4; -NYST-13 TOP; +NYST0.1C TOP; +TOPI-256; -TOPI25TA10
== END ==
LOC: M EKG 13:18
PROVIDERS: ATTEND Nurse Practitioner Psychiatric/Mental Health
DX: F90.2 Attention-deficit hyperactivity disorder, combined type (principal)